=== PATIENT | female | born 1925 | race Caucasian/White ===

== ENCOUNTER 2016-12-19 09:01 | Inpatient (IN) | payer MEDICARE, OTHER ==
[2016-12-19] MEDS ORDERED: Sodium Chloride 0.9% 10 ML Syringe FLUSH PRN (09:29)
[2016-12-19] MEDS ORDERED: Aspirin 81 MG Tab.Chew PO ONE (09:29)
[2016-12-19] MEDS ORDERED: Nitroglycerin 0.4 MG Tab.SL SL PRN (09:29)
[2016-12-19] MEDS ORDERED: LORazepam 2 MG/ML MDV IVPUSH ONE (09:32)
[2016-12-19] MEDS ORDERED: Ondansetron 4 MG/2 ML SDV IVPUSH ONE (09:36)
--- NOTE | 2016-12-19 09:36 | EDM.PDOC ---
ED HPI GENERAL MEDICAL PROBLEM - General Chief Complaint: Chest Pain Stated Complaint: CHEST PAINS Time Seen by Provider: 12/19/16 09:04 Source of Information: Reports: Patient, Family, RN Notes Reviewed History Limitations: Reports: No Limitations - History of Present Illness INITIAL COMMENTS - FREE TEXT/NARRATIVE: 89-year-old female presents emergency department day complaint of chest pressure she describes it as an elephant sitting on her chest she does feel short of breath with nausea no diaphoresis does have a known history of coronary artery disease with past infarct however recent stress test performed on 2016 shows no acute ischemia, she states the chest pressure started last evening it has been waxing and waning but continued she was able to sleep through the night awoke this morning the pressure was still present. Does have a known history of atrial fibrillation currently on xeralto Bilateral Upper Chest Pain Score (Numeric/FACES): 9 - Related Data Allergies Allergy/AdvReac Type Severity Reaction Status Date / Time influenza virus vaccine, Allergy Unknown Cannot Verified 12/19/16 09:15 specific Remember [Influenza Virus Vacc,Specific] Iodinated Contrast- Oral and Allergy Unknown Cannot Verified 12/19/16 09:15 IV Dye Remember [Iodinated Contrast Media - IV Dye] orange juice [[place] Juice] Allergy Unknown Cannot Verified 12/19/16 09:15 Remember amoxicillin [Amoxicillin] AdvReac Nausea and Verified 12/19/16 09:15 Vomiting ciprofloxacin [From Cipro] AdvReac Nausea and Verified 12/19/16 09:15 Vomiting ciprofloxacin HCl AdvReac Nausea and Verified 12/19/16 09:15 [From Cipro] Vomiting Home Meds: Home Meds Ascorbic Acid [Vitamin C] 1,000 mg PO BID 02/19/13 [History] Aspirin [Halfprin] 81 mg PO DAILY 02/19/13 [History] Cetirizine HCl [Zyrtec] 10 mg PO DAILY 02/19/13 [History] Lutein 10 mg PO DAILY 02/19/13 [History] Valsartan [Diovan] 160 mg PO DAILY 02/19/13 [History] Vitamin B Complex [B Complex] 1 each PO DAILY 02/19/13 [History] metFORMIN [Glucophage] 1,000 mg PO BIDM 02/20/13 [History] Codeine/guaiFENesin [Robitussin AC] 1 tsp PO BEDTIME PRN 02/06/14 [History] Levothyroxine [Synthroid] 1 tab PO DAILY 02/06/14 [History] Montelukast [Singulair] 10 mg PO DAILY 02/06/14 [History] Metoprolol Tartrate 25 mg PO BID 04/08/15 [History] Rivaroxaban [Xarelto] 15 mg PO DAILY #30 tablet 04/10/15 [Rx] Fluticasone Propionate [Flonase] 2 sprays NS DAILY 07/26/16 [History] Furosemide [Lasix] 20 mg PO DAILY 07/26/16 [History] Omeprazole 20 mg PO DAILY 07/26/16 [History] amLODIPine [Norvasc] 5 mg PO DAILY 07/26/16 [History] tiZANidine HCl [Tizanidine HCl] 4 mg PO TID 07/26/16 [History] Past Medical History Cardiovascular History: Reports: Afib, Arrhythmia, Hypertension, Syncope Other Cardiovascular History: Cardioverted Respiratory History: Reports: Asthma Gastrointestinal History: Reports: GI Bleed Genitourinary History: Reports: Urinary Incontinence 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: Musculoskeletal History: Reports: Fracture, Other (See Below) Other Musculoskeletal History: broken toes Neurological History: Reports: Vertigo Psychiatric History: Reports: Anxiety Endocrine/Metabolic History: Reports: Diabetes, Type II Dermatologic History: Reports: Melanoma - Past Surgical History HEENT Surgical History: Reports: Tonsillectomy Musculoskeletal Surgical History: Reports: Knee Replacement Social & Family History - Tobacco Use Smoking Status *Q: Unknown Ever Smoked Second Hand Smoke Exposure: No - Alcohol Use Days Per Week of Alcohol Use: 0 - Recreational Drug Use Recreational Drug Use: No ED ROS GENERAL - Review of Systems Review Of Systems: See Below (Yeah she wanted try all good she feel better) Constitutional: Reports: No Symptoms. Denies: Diaphoresis HEENT: Reports: No Symptoms Respiratory: Reports: Shortness of Breath Cardiovascular: Reports: Chest Pain GI/Abdominal: Reports: Nausea. Denies: Vomiting : Reports: No Symptoms Musculoskeletal: Reports: No Symptoms Skin: Reports: No Symptoms ED EXAM, GENERAL - Physical Exam Exam: See Below Exam Limited By: No Limitations General Appearance: Alert, WD/WN, No Apparent Distress Head: Atraumatic, Normocephalic Neck: Normal Inspection, Supple, Non-Tender, Full Range of Motion Respiratory/Chest: No Respiratory Distress, No Accessory Muscle Use, Crackles Cardiovascular: No Murmur, Irregularly Irregular GI/Abdominal: Soft, Non-Tender Course - Vital Signs Last Recorded V/S: Last Vital Signs Temp 97.8 F 12/19/16 11:32 Pulse 80 12/19/16 11:32 Resp 15 12/19/16 11:32 BP 139/102 H 12/19/16 11:32 Pulse Ox 95 12/19/16 11:32 - Orders/Labs/Meds Orders: Active Orders 24 hr Category Date Time Status Cardiac Monitoring [RC] .As Directed Care 12/19/16 09:29 Active EKG Documentation Completion [RC] ASDIRECTED Care 12/19/16 09:30 Active Peripheral IV Care [RC] . DIRECTED Care 12/19/16 09:30 Active Peripheral IV Insertion Adult [OM.PC] Stat Oth 12/19/16 09:29 Ordered Saline Lock Insert [OM.PC] Stat Oth 12/19/16 09:29 Ordered EKG 12 Lead [EK] Stat Ther 12/19/16 09:30 Ordered Labs: Laboratory Tests 12/19/16 12/19/16 12/19/16 Range/Units 09:29 09:29 10:04 WBC 20.2 H (4.5-11.0) K/uL RBC 3.20 L (3.30-5.50) M/uL Hgb 9.5 L (12.0-15.0) g/dL Hct 29.6 L (36.0-48.0) % MCV 93 (80-98) fL MCH 30 (27-31) pg MCHC 32 (32-36) % Plt Count 172 (150-400) K/uL Neut % (Auto) 43 (36-66) % Lymph % (Auto) 8 L (24-44) % [place] % (Auto) 48 H (2-6) % Eos % (Auto) 0 L (2-4) % Baso % (Auto) 0 (0-1) % Sodium 135 L (140-148) mmol/L Potassium 3.9 (3.6-5.2) mmol/L Chloride 98 L (100-108) mmol/L Carbon Dioxide 27 (21-32) mmol/L Anion Gap 13.9 (5.0-14.0) mmol/L BUN 11 (7-18) mg/dL Creatinine 0.9 (0.6-1.0) mg/dL Est Cr Clr Drug Dosing 36.59 mL/min Estimated GFR (MDRD) 59 L (>60) Glucose 269 H (74-106) mg/dL Calcium 8.3 L (8.5-10.1) mg/dL Total Bilirubin 0.9 D (0.2-1.0) mg/dL AST 15 (15-37) U/L ALT 16 (12-78) U/L Alkaline Phosphatase 157 H D (46-116) U/L CK-MB (CK-2) 1.3 (0-3.6) mg/mL Troponin I < 0.017 (0.000-0.056) ng/mL Gho-S-Ujkegdcenoc Pept 1216 H (5-450) pg/mL Total Protein 7.6 (6.4-8.2) g/dL Albumin 3.6 (3.4-5.0) g/dL Globulin 4.0 H (2.3-3.5) g/dL Albumin/Globulin Ratio 0.9 L (1.2-2.2) Meds: Medications Discontinued Medications Generic Name Dose Route Start Last Admin Trade Name Freq PRN Reason Stop Dose Admin Aspirin 324 mg 12/19/16 09:29 12/19/16 09:48 Aspirin PO 12/19/16 09:30 324 mg ONETIME ONE Administration Lorazepam 0.5 mg 12/19/16 09:32 12/19/16 09:49 Ativan IVPUSH 12/19/16 09:33 0.5 mg ONETIME ONE Administration Morphine Sulfate 2 mg 12/19/16 09:29 12/19/16 09:49 Morphine IVPUSH 12/20/16 09:30 2 mg Q10M PRN Administration Chest Pain Nitroglycerin 0.4 mg 12/19/16 09:29 12/19/16 09:48 Nitrostat SL 12/20/16 09:29 0.4 mg Q5M PRN Administration Chest Pain Ondansetron HCl 4 mg 12/19/16 09:36 12/19/16 09:56 Zofran IVPUSH 12/19/16 09:37 4 mg ONETIME ONE Administration Sodium Chloride 10 ml 12/19/16 09:29 12/19/16 09:56 Saline Flush FLUSH 10 ml ASDIRECTED PRN Administration Keep Vein Open Departure - Departure Time of Disposition: 12:07 Disposition: Admitted As Inpatient 68 Condition: Fair Clinical Impression: Atrial fibrillation with controlled ventricular response Dyspnea Qualifiers: Dyspnea type: shortness of breath Qualified Code(s): R06.02 - Shortness of breath; R06.00 - Dyspnea, unspecified; R06.01 - Orthopnea Referrals: Veena Matute PA [Primary Care Provider] - Forms: ED Department Discharge - My Orders Last 24 Hours: My Active Orders 12/19/16 09:29 Cardiac Monitoring [RC] .As Directed Peripheral IV Insertion Adult [OM.PC] Stat Saline Lock Insert [OM.PC] Stat 12/19/16 09:30 EKG Documentation Completion [RC] ASDIRECTED Peripheral IV Care [RC] . DIRECTED EKG 12 Lead [EK] Stat - Assessment/Plan Last 24 Hours: My Active Orders 12/19/16 09:29 Cardiac Monitoring [RC] .As Directed Peripheral IV Insertion Adult [OM.PC] Stat Saline Lock Insert [OM.PC] Stat 12/19/16 09:30 EKG Documentation Completion [RC] ASDIRECTED Peripheral IV Care [RC] . DIRECTED EKG 12 Lead [EK] Stat Plan: Assessment Acuity = acute Site and laterality = dyspnea complicated in a patient with known history of congestive heart failure, coronary artery disease, atrial fibrillation on chronic anticoagulation xarelto Etiology = unclear etiology Manifestations = ongoing dyspnea and hypoxia Location of injury = Home Lab values = WBC elevated at 20.2 consistent leukocytosis hemoglobin low at 9.5 consistent with normochromic anemia hemoglobin low at 135 consistent hyponatremia BNP elevated at 1216 consistent with mild fluid overload type pattern chest x-ray consistent with congestive heart failure type pattern EKG demonstrates atrial fibrillation Plan Called discussed case with hospitalist chain sales consultant he agreed to come and evaluate the patient in the ED for admission Patient was in agreement with the plan all questions were answered, they were instructed to return to the emergency department or call for worsening symptoms. This note was dictated using [employer] voice recognition software please call with any questions.
[2016-12-19] MEDS: Morphine 2 MG/ML Syringe IVPUSH PRN ×2 (09:49→17:22)
--- NOTE | 2016-12-19 10:19 | CR ---
Chest 1V Frontal INDICATION: Chest Pain COMPARISON: 04/15/2011 FINDINGS: Single AP portable view of the chest. Mild cardiomegaly unchanged. There is mild vascula r congestion. No focal consolidations or pleural effusions. IMPRESSION: Mild CHF.
--- NOTE | 2016-12-19 11:26 | CT ---
Chest wo Cont INDICATION: hypoxic TECHNIQUE: CT images of the chest without IV contrast. Coronal reformatted images obtained. DLP: 246 mGycm COMPARISON: None FINDINGS:No mediastinal mass. Thoracic aorta normal caliber. Coronary artery calcifications. Minimal pericardial effusion or thickening. Minimal atelectatic changes in both lower lobes. No focal conso lidations. No signs of pulmonary edema. No pleural effusions. Calcified granulomas in the liver and spleen. IMPRESSION: Nothing acute. Incidental findings, as above.
--- NOTE | 2016-12-19 12:41 | PCM.HP ---
H&P History of Present Illness - General Date of Service: 12/19/16 Admit Problem/Dx: Admission Diagnosis/Problem Admission Diagnosis/Problem CHF, Congestive heart failure Source of Information: Patient, Family, Provider History Limitations: Reports: No Limitations - History of Present Illness Initial Comments - Free Text/Narative: Shama presented to the emergency room with chest pressure. This started last evening and has progressed and not gotten better since that time. She reports moderate pressure like pain in the center of her chest. This radiates to her shoulder into her neck on the left side. Pain seems to wax and wane with no obvious trigger. She did not take anything at home. Nitroglycerin and morphine did not provide any relief here in the emergency room. Lorazepam may have helped a little. The pain is associated with some shortness of breath. She does report a history of progressive shortness of breath over the past few days and to a mild extent over the past few weeks. She is short of breath with minimal activity but comfortable at rest. She does not report orthopnea. She noticed a very low-grade temperature elevation yesterday but has not felt any fevers. She has an occasional relatively infrequent cough. She had mild diarrhea last week that has resolved. Currently does not have abdominal pain or nausea. No change in bladder habits. No lower extremity edema. Workup in the emergency room was suggestive of mild congestive heart failure which is thought to be diastolic. There is no evidence for acute coronary syndrome at this time. She will be admitted for further management. Bilateral Upper Chest Pain Score (Numeric/FACES): 9 - Related Data Allergies/Adverse Reactions: Allergies Allergy/AdvReac Type Severity Reaction Status Date / Time influenza virus vaccine, Allergy Unknown Cannot Verified 12/19/16 09:15 specific Remember [Influenza Virus Vacc,Specific] Iodinated Contrast- Oral and Allergy Unknown Cannot Verified 12/19/16 09:15 IV Dye Remember [Iodinated Contrast Media - IV Dye] orange juice [[place] Juice] Allergy Unknown Cannot Verified 12/19/16 09:15 Remember amoxicillin [Amoxicillin] AdvReac Nausea and Verified 12/19/16 09:15 Vomiting ciprofloxacin [From Cipro] AdvReac Nausea and Verified 12/19/16 09:15 Vomiting ciprofloxacin HCl AdvReac Nausea and Verified 12/19/16 09:15 [From Cipro] Vomiting Home Medications: Home Meds Ascorbic Acid [Vitamin C] 1,000 mg PO DAILY 10/15/13 [History] Aspirin [Halfprin] 81 mg PO DAILY 02/19/13 [History] Lutein 10 mg PO DAILY 02/19/13 [History] Valsartan [Diovan] 160 mg PO BEDTIME 02/19/13 [History] Vitamin B Complex [B Complex] 1 each PO BID 02/19/13 [History] metFORMIN [Glucophage] 1,000 mg PO BID 02/20/13 [History] Codeine/guaiFENesin [Robitussin AC] 1 tsp PO BEDTIME PRN 02/06/14 [History] Levothyroxine [Synthroid] 1 mcg PO DAILY 02/06/14 [History] Montelukast [Singulair] 10 mg PO DAILY 02/06/14 [History] Metoprolol Tartrate 25 mg PO BID 04/08/15 [History] Furosemide [Lasix] 20 mg PO DAILY 07/26/16 [History] Omeprazole 20 mg PO ASDIRECTED PRN 07/26/16 [History] Loratadine 10 mg PO DAILY 12/19/16 [History] Rivaroxaban [Xarelto] 15 mg PO BEDTIME 12/19/16 [History] Past Medical History Cardiovascular History: Reports: Afib, Arrhythmia, Hypertension, Syncope Other Cardiovascular History: Cardioverted Respiratory History: Reports: Asthma Gastrointestinal History: Reports: GI Bleed Genitourinary History: Reports: Urinary Incontinence 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: Reports: Fracture, Other (See Below) Other Musculoskeletal History: broken toes Neurological History: Reports: Vertigo Psychiatric History: Reports: Anxiety Endocrine/Metabolic History: Reports: Diabetes, Type II Dermatologic History: Reports: Melanoma - Past Surgical History HEENT Surgical History: Reports: Tonsillectomy Musculoskeletal Surgical History: Reports: Knee Replacement Social & Family History - Family History Oncologic: Reports: Brain (daughter with brain tumor) - Tobacco Use Smoking Status *Q: Unknown Ever Smoked Second Hand Smoke Exposure: No - Alcohol Use Days Per Week of Alcohol Use: 0 - Recreational Drug Use Recreational Drug Use: No H&P Review of Systems - Review of Systems: Review Of Systems: See Below Free Text/Narrative: A complete 12 point review of systems was obtained. Pertinent positives and negatives are noted in the history of present illness. All other systems were reviewed and were negative except as noted. Exam - Exam Exam: See Below - Vital Signs Vital Signs: Last Vital Signs Temp 36.6 C 12/19/16 11:32 Pulse 80 12/19/16 11:32 Resp 15 12/19/16 11:32 BP 139/102 H 12/19/16 11:32 Pulse Ox 95 12/19/16 11:32 Weight: 81.647 kg - Exam Quality Assessment: Supplemental Oxygen General: Alert, Oriented, Cooperative. No: Mild Distress, Lethargic HEENT: Conjunctiva Clear, Mucosa Moist & [place]. No: Scleral Icterus Neck: Supple, Trachea Midline. No: Lymphadenopathy Lungs: Normal Respiratory Effort, Rales (mild at both bases) Cardiovascular: Regular Rate, Irregular Rhythm, Systolic Murmur (soft LOR[place]INE best at LLSB) GI/Abdominal Exam: Normal Bowel Sounds, Soft, Non-Tender, No Distention Back Exam: Normal Inspection, Full Range of Motion Extremities: Pedal Edema (mild bilateral ankle edema). No: Joint Swelling, Increased Warmth Peripheral Pulses: 2+: Dorsalis Pedis (L), Dorsalis Pedis (R) Skin: Warm, Dry. No: Rash Neuro Extensive - Mental Status: Alert, Oriented x3, Nl Response to Commands Neuro Extensive - Motor, Sensory, Reflexes: CN II-XII Intact. No: Dysarthria, Abnormal Motor, Tremor Psychiatric: Alert, Normal Affect - Patient Data Lab Results Last 24 hrs: Laboratory Results - last 24 hr 12/19/16 12/19/16 12/19/16 Range/Units 09:29 09:29 10:04 WBC 20.2 H (4.5-11.0) K/uL RBC 3.20 L (3.30-5.50) M/uL Hgb 9.5 L (12.0-15.0) g/dL Hct 29.6 L (36.0-48.0) % MCV 93 (80-98) fL MCH 30 (27-31) pg MCHC 32 (32-36) % Plt Count 172 (150-400) K/uL Neut % (Auto) 43 (36-66) % Lymph % (Auto) 8 L (24-44) % [place] % (Auto) 48 H (2-6) % Eos % (Auto) 0 L (2-4) % Baso % (Auto) 0 (0-1) % Sodium 135 L (140-148) mmol/L Potassium 3.9 (3.6-5.2) mmol/L Chloride 98 L (100-108) mmol/L Carbon Dioxide 27 (21-32) mmol/L Anion Gap 13.9 (5.0-14.0) mmol/L BUN 11 (7-18) mg/dL Creatinine 0.9 (0.6-1.0) mg/dL Est Cr Clr Drug Dosing 36.59 mL/min Estimated GFR (MDRD) 59 L (>60) Glucose 269 H (74-106) mg/dL Calcium 8.3 L (8.5-10.1) mg/dL Total Bilirubin 0.9 D (0.2-1.0) mg/dL AST 15 (15-37) U/L ALT 16 (12-78) U/L Alkaline Phosphatase 157 H D (46-116) U/L CK-MB (CK-2) 1.3 (0-3.6) mg/mL Troponin I < 0.017 (0.000-0.056) ng/mL L[facility]-L-Bjovnicfccg Pept 1216 H (5-450) pg/mL Total Protein 7.6 (6.4-8.2) g/dL Albumin 3.6 (3.4-5.0) g/dL Globulin 4.0 H (2.3-3.5) g/dL Albumin/Globulin Ratio 0.9 L (1.2-2.2) Result Diagrams: 12/19/16 09:29 12/19/16 09:29 Imaging Impressions Last 24 hrs: CXR - images personally reviewed - mild cardiomegally and mild pulm vasc congestion. no infiltrate, mass or effusion CT chest - no obvious abnromality, no mass or infiltrate EKG INTERPRETATION EKG Date: 12/19/16 Rhythm: A-Fib Rate (Beats/Min): 107 [place]: Normal P-Wave: Variable QRS: Normal ST-T: Normal QT: Normal *Q Meaningful Use (ADM) - VTE *Q VTE Criteria *Q: - VTE Risk Assess *Q Each Risk Factor Represents 1 Point: Swollen Legs, Current, Obesity (BMI greater than 30), Congestive Heart Failure, Less than 1 Month Total Score 1 Point Risk Factors: 3 Each Risk Factor Represents 2 Points: None Total Score 2 Point Risk Factors: 0 Each Risk Factor Represents 3 Points: Age 75 Years or Greater Total Score 3 Point Risk Factors: 3 Each Risk Factor Represents 5 Points: None Total Score 5 Point Risk Factors: 0 Venous Thromboembolism Risk Factor Score *Q: 6 - Stroke *Q Stroke Criteria *Q: - AMI *Q AMI Criteria *Q: - Problem List (1) Acute diastolic CHF (congestive heart failure), NYHA class 3 SNOMED Code(s): 689764991, 02400563, 017242601, 492695967 ICD Code: I50.31 - ACUTE DIASTOLIC (CONGESTIVE) HEART FAILURE Status: Acute Current Visit: Yes (2) Diabetes mellitus type 2 SNOMED Code(s): 55272676 ICD Code: E11.9 - TYPE 2 DIABETES MELLITUS WITHOUT COMPLICATIONS Status: Chronic Priority: Medium Current Visit: No (3) Atrial fibrillation with controlled ventricular response SNOMED Code(s): 99877561, 160680196 ICD Code: I48.91 - UNSPECIFIED ATRIAL FIBRILLATION Status: Chronic Priority: Medium Current Visit: Yes Problem List Initiated/Reviewed/Updated: Yes Orders Last 24hrs: Active Orders 24 hr Category Date Time Status Patient Status Manage Transfer [TRANSFER] Routine ADT 12/19/16 12:32 Ordered Cardiac Monitoring [RC] .As Directed Care 12/19/16 09:29 Active EKG Documentation Completion [RC] ASDIRECTED Care 12/19/16 09:30 Active Peripheral IV Care [RC] . DIRECTED Care 12/19/16 09:30 Active Furosemide [Lasix] Med 12/19/16 12:31 Once 40 mg IVPUSH NOW ONE Peripheral IV Insertion Adult [OM.PC] Stat Oth 12/19/16 09:29 Ordered Saline Lock Insert [OM.PC] Stat Oth 12/19/16 09:29 Ordered Resuscitation Status Routine Resus Stat 12/19/16 12:34 Ordered EKG 12 Lead [EK] Stat Ther 12/19/16 09:30 Ordered Medication Orders Furosemide (Lasix) 40 mg IVPUSH NOW ONE Stop: 12/19/16 12:32 Assessment/Plan Comment:: Assessment and Plan - Heart failure with preserved ejection fraction - diastolic type heart failure with slow progression and more acute change in the past 3 days. no obvious cause for exacerbation at this time. Could be related to a slow buildup of fluid caused by insufficient diuretic dosing. No evidence for infection. No recent symptoms to suggest ischemia. Recent thyroid testing normal. -Furosemide 40 mg 1 now -Cardiac monitoring -Continue BB, ARB -Reassess volume status this afternoon -Consider repeat echo Monday -Recheck electrolytes and renal function in the morning Type 2 diabetes mellitus - controlled by history. -Continue metformin -Twice daily Accu-Cheks -Consider sliding scale insulin if needed Chronic atrial fibrillation - rate controlled at this time.she is chronically anticoagulated -Continue beta andre -Continue rivaroxaban Maintenance issues - - DVT prophylaxis - rivaroxaban - GI prophylaxis - PPI - Nutrition - diabetic - Houser catheter - not indicated CODE STATUS - DNR/DNI Admission justification - This patient will be admitted for inpatient services and is medically appropriate meeting medical necessity for inpatient admission as outlined in my documentation. I reasonably expect the patient will require inpatient services that span a period time over 2 midnights. I reasonably expect this patient to be discharged or transferred within 96 hours [facility]. Disposition - anticipate discharge to home after the hospital stay Primary care physician - Debbi Jimenez M.D.
[2016-12-19] MEDS ORDERED: Furosemide 40 MG/4 ML VIAL IVPUSH ONE (13:00)
[2016-12-19] MEDS ORDERED: Polyethylene Glycol 3350 Powder 17 GM Packet PO PRN (13:52)
[2016-12-19] MEDS ORDERED: Diphtheria,Pertussis(Acell),Tetanus Vaccine 0.5 ML SDV IM ONE (16:00)
[2016-12-19] MEDS ORDERED: Pneumococcal Polyvalent-23 Vaccine 0.5 ML SDV IM ONE (16:00)
[2016-12-19] MEDS: metFORMIN 500 MG Tab PO SCH (17:16)
[2016-12-19] MEDS: Acetaminophen 325 MG Tab PO PRN (17:36)
[2016-12-19] MEDS: Rivaroxaban 15 MG Tab PO SCH (22:31)
[2016-12-19] MEDS: Metoprolol Tartrate 25 MG Tab PO SCH (22:32)
[2016-12-20] MEDS: Morphine 2 MG/ML Syringe IVPUSH PRN ×2 (04:11→07:20)
[2016-12-20] MEDS: Ondansetron 4 MG Tab.DIS PO PRN (07:07)
[2016-12-20] MEDS: Vitamin B Complex Tab PO SCH (08:56)
[2016-12-20] MEDS: Montelukast 10 MG Tab PO SCH (08:57)
[2016-12-20] MEDS: Pantoprazole 40 MG Tab.CR PO SCH (08:57)
[2016-12-20] MEDS: Levothyroxine 100 MCG Tab PO SCH (08:57)
[2016-12-20] MEDS: metFORMIN 500 MG Tab PO SCH ×2 (08:58→17:13)
[2016-12-20] MEDS: Metoprolol Tartrate 25 MG Tab PO SCH ×2 (09:13→20:50)
[2016-12-20] MEDS: Loratadine 10 MG Tab PO SCH (09:14)
[2016-12-20] MEDS: Aspirin 81 MG Tab.EC PO SCH (09:14)
[2016-12-20] MEDS: LUTEIN 10 MG PO SCH (09:15)
--- NOTE | 2016-12-20 10:15 | PCM.PN ---
- General Info Date of Service: 12/20/16 Functional Status: Reports: Pain Controlled - Review of Systems General: Reports: Weakness Pulmonary: Reports: Shortness of Breath Cardiovascular: Reports: Chest Pain Systems Review Comment:: Overnight there was some difficulty with hypotension as well as dyspnea on exertion and diaphoresis with exertion. Pressures have remained on the low normal side. This morning she felt a little better but then had another episode later in the day with blood pressures in the 80s. She complains of anterior chest pain as well as pain in between her shoulder blades. This is worse with any movement as well as pushing on her chest. It hurts to take a deep breath. - Patient Data Vitals - Most Recent: Last Vital Signs Temp 36.5 C 12/20/16 07:15 Pulse 114 H 12/20/16 09:13 Resp 18 12/20/16 07:47 BP 106/66 12/20/16 09:13 Pulse Ox 91 L 12/20/16 07:47 Weight - Most Recent: 84.397 kg I&O - Last 24 Hours: Intake & Output 12/19/16 12/20/16 12/20/16 22:59 06:59 14:59 Intake Total 240 500 840 Output Total 300 150 150 Balance -60 350 690 Lab Results Last 24 Hours: Laboratory Results - last 24 hr 12/19/16 12/20/16 12/20/16 Range/Units 22:36 08:43 08:43 WBC 29.2 H (4.5-11.0) K/uL RBC 3.03 L (3.30-5.50) M/uL Hgb 9.1 L (12.0-15.0) g/dL Hct 28.7 L (36.0-48.0) % MCV 95 (80-98) fL MCH 30 (27-31) pg MCHC 32 (32-36) % Plt Count 142 L (150-400) K/uL Add Manual Diff Yes Neutrophils % (Manual) 75 H (36-66) % Lymphocytes % (Manual) 14 L (24-44) % Monocytes % (Manual) 11 H (2-6) % Polychromasia Sodium 131 L (140-148) mmol/L Potassium 4.5 (3.6-5.2) mmol/L Chloride 95 L (100-108) mmol/L Carbon Dioxide 29 (21-32) mmol/L Anion Gap 11.5 (5.0-14.0) mmol/L BUN 20 H D (7-18) mg/dL Creatinine 1.1 H (0.6-1.0) mg/dL Est Cr Clr Drug Dosing 29.94 mL/min Estimated GFR (MDRD) 47 L (>60) Glucose 310 H (74-106) mg/dL Calcium 8.1 L (8.5-10.1) mg/dL Troponin I < 0.017 (0.000-0.056) ng/mL Urine Color [place] Urine Appearance Cloudy Urine pH 5.0 (4.5-8.0) Ur Specific [place] 1.015 (1.008-1.030) Urine Protein Negative (NEGATIVE) mg/dL Urine Glucose (UA) 50 H (NEGATIVE) mg/dL Urine Ketones Negative (NEGATIVE) mg/dL Urine Occult Blood Negative (NEGATIVE) Urine Nitrite Negative (NEGATIVE) Urine Bilirubin Small (NEGATIVE) Urine Urobilinogen 1 (NORMAL) mg/dL Ur Leukocyte Esterase Moderate (NEGATIVE) Urine RBC 0-5 (0-5) Urine WBC 10-20 H (0-5) Ur Epithelial Cells Moderate Amorphous Sediment Few Urine Bacteria Few Urine Mucus Few Urine Other See note Med Orders - Current: Current Medications Acetaminophen (Tylenol) 650 mg PO Q4H PRN PRN Reason: Pain (Mild 1-3)/fever Last Admin: 12/19/16 17:36 Dose: 650 mg Aspirin (Halfprin) 81 mg PO DAILY [facility] Last Admin: 12/20/16 09:14 Dose: 81 mg Ibuprofen (Motrin) 400 mg PO TID [facility] Insulin Aspart (Novolog) 0 unit SUBCUT QIDACANDBED [facility] PRN Reason: Protocol Levothyroxine Sodium (Synthroid) 100 mcg PO ACBREAKFAST [facility] Last Admin: 12/20/16 08:57 Dose: 100 mcg Loratadine (Claritin) 10 mg PO DAILY [facility] Last Admin: 12/20/16 09:14 Dose: 10 mg Metformin HCl (Glucophage) 1,000 mg PO BIDM [facility] Last Admin: 12/20/16 08:58 Dose: 1,000 mg Metoprolol Tartrate (Lopressor) 25 mg PO BID [facility] Last Admin: 12/20/16 09:13 Dose: 25 mg Montelukast Sodium (Singulair) 10 mg PO DAILY [facility] Last Admin: 12/20/16 08:57 Dose: 10 mg Lutein 10 Mg (Ptom) 0 mg PO DAILY [facility] Last Admin: 12/20/16 09:15 Dose: Not Given Ondansetron HCl (Zofran Odt) 4 mg PO Q6H PRN PRN Reason: Nausea able to take PO Last Admin: 12/20/16 07:07 Dose: 4 mg Pantoprazole Sodium (Protonix) 40 mg PO ACBREAKFAST [facility] Last Admin: 12/20/16 08:57 Dose: 40 mg Polyethylene Glycol (Miralax) 17 gm PO DAILY PRN PRN Reason: Constipation Rivaroxaban (Xarelto) 15 mg PO BEDTIME [facility] Last Admin: 12/19/16 22:31 Dose: 15 mg Sodium Chloride (Saline Flush) 10 ml FLUSH ASDIRECTED PRN PRN Reason: Keep Vein Open Last Admin: 12/19/16 09:56 Dose: 10 ml Valsartan (Diovan) 80 mg PO BEDTIME [facility] Vitamin B Complex (Vitamin B Complex) 1 each PO DAILY [facility] Last Admin: 12/20/16 08:56 Dose: 1 each Discontinued Medications Aspirin (Aspirin) 324 mg PO ONETIME ONE Stop: 12/19/16 09:30 Last Admin: 12/19/16 09:48 Dose: 324 mg Diphtheria/Tetanus/Acell Pertussis (Adacel) 0.5 ml IM .ONCE ONE Stop: 12/19/16 16:01 Furosemide (Lasix) 40 mg IVPUSH NOW ONE Stop: 12/19/16 13:01 Last Admin: 12/19/16 13:27 Dose: 40 mg Lorazepam (Ativan) 0.5 mg IVPUSH ONETIME ONE Stop: 12/19/16 09:33 Last Admin: 12/19/16 09:49 Dose: 0.5 mg Morphine Sulfate (Morphine) 2 mg IVPUSH Q10M PRN PRN Reason: Chest Pain Stop: 12/20/16 09:30 Last Admin: 12/20/16 07:20 Dose: 2 mg Nitroglycerin (Nitrostat) 0.4 mg SL Q5M PRN PRN Reason: Chest Pain Stop: 12/20/16 09:29 Last Admin: 12/19/16 09:48 Dose: 0.4 mg Ondansetron HCl (Zofran) 4 mg IVPUSH ONETIME ONE Stop: 12/19/16 09:37 Last Admin: 12/19/16 09:56 Dose: 4 mg Pneumococcal Polyvalent Vaccine (Pneumovax 23) 0.5 ml IM .ONCE ONE Stop: 12/19/16 16:01 Valsartan (Diovan) 160 mg PO BEDTIME SAY Last Admin: 12/19/16 22:32 Dose: Not Given - Exam Quality Assessment: Supplemental Oxygen General: Alert, Oriented, Cooperative, No Acute Distress HEENT: Pupils Equal Neck: Supple Lungs: Normal Respiratory Effort, Rales (few at both bases) Cardiovascular: Regular Rate, Irregular Rhythm, Murmurs GI/Abdominal Exam: Soft, No Distention Extremities: No Pedal Edema. No: Increased Warmth Skin: Warm, Dry Psy/Mental Status: Alert, Normal Affect - Problem List & Annotations (1) Acute diastolic CHF (congestive heart failure), NYHA class 3 SNOMED Code(s): 503563822, 07324261, 039847862, 296569938 Code(s): I50.31 - ACUTE DIASTOLIC (CONGESTIVE) HEART FAILURE Status: Acute Current Visit: Yes (2) Diabetes mellitus type 2 SNOMED Code(s): 66500274 Code(s): E11.9 - TYPE 2 DIABETES MELLITUS WITHOUT COMPLICATIONS Status: Chronic Priority: Medium Current Visit: No (3) Atrial fibrillation with controlled ventricular response SNOMED Code(s): 88625982, 234483967 Code(s): I48.91 - UNSPECIFIED ATRIAL FIBRILLATION Status: Chronic Priority: Medium Current Visit: Yes - Problem List Review Problem List Initiated/Reviewed/Updated: Yes - My Orders Last 24 Hours: My Active Orders 12/19/16 12:34 Resuscitation Status Routine 12/19/16 13:52 Patient Status [ADT] Routine Cardiac Monitoring [RC] CONTINUOUS Communication Order [RC] PRN Communication Order [RC] PRN Diabetes Education [RC] Click to Edit Intake and Output [RC] QSHIFT Notify Provider Vital Signs [RC] ASDIRECTED Notify Provider [RC] PRN Oxygen Therapy [RC] PRN Up With Assistance [RC] ASDIRECTED VTE/DVT Education [RC] Per Unit Routine Vital Signs [RC] Q4H Acetaminophen [Tylenol] 650 mg PO Q4H PRN Ondansetron [Zofran ODT] 4 mg PO Q6H PRN Polyethylene Glycol 3350 [MiraLAX] 17 gm PO DAILY PRN 12/19/16 Dinner Consistent Carbohydrate Diet [DIET] 12/20/16 07:30 Pantoprazole [ProTONIX] 40 mg PO ACBREAKFAST 12/20/16 08:43 PATHOLOGIST'S DIFFERENTIAL [REF] Routine 12/20/16 09:29 Communication Order [RC] PRN Communication Order [RC] PRN 12/20/16 10:15 Ibuprofen [Motrin] 400 mg PO TID 12/20/16 11:00 Insulin Aspart [NovoLOG] See Protocol SUBCUT QIDACANDBED 12/20/16 11:30 GLUCOSE POC LAB TO COLLECT [POC] QIDACANDBED 12/20/16 16:30 GLUCOSE POC LAB TO COLLECT [POC] QIDACANDBED 12/20/16 21:00 GLUCOSE POC LAB TO COLLECT [POC] QIDACANDBED Valsartan [Diovan] 80 mg PO BEDTIME 12/21/16 05:00 BASIC METABOLIC PANEL,BMP [CHEM] Timed CBC W/O DIFF,HEMOGRAM [HEME] Timed (1) 12/21/16 07:30 GLUCOSE POC LAB TO COLLECT [POC] QIDACANDBED 12/21/16 11:30 GLUCOSE POC LAB TO COLLECT [POC] QIDACANDBED 12/21/16 16:30 GLUCOSE POC LAB TO COLLECT [POC] QIDACANDBED 12/21/16 21:00 GLUCOSE POC LAB TO COLLECT [POC] QIDACANDBED 12/22/16 07:30 GLUCOSE POC LAB TO COLLECT [POC] QIDACANDBED 12/22/16 11:30 GLUCOSE POC LAB TO COLLECT [POC] QIDACANDBED 12/22/16 16:30 GLUCOSE POC LAB TO COLLECT [POC] QIDACANDBED 12/22/16 21:00 GLUCOSE POC LAB TO COLLECT [POC] QIDACANDBED 12/23/16 07:30 GLUCOSE POC LAB TO COLLECT [POC] QIDACANDBED 12/23/16 11:30 GLUCOSE POC LAB TO COLLECT [POC] QIDACANDBED 12/23/16 16:30 GLUCOSE POC LAB TO COLLECT [POC] QIDACANDBED 12/23/16 21:00 GLUCOSE POC LAB TO COLLECT [POC] QIDACANDBED 12/24/16 07:30 GLUCOSE POC LAB TO COLLECT [POC] QIDACANDBED 12/24/16 11:30 GLUCOSE POC LAB TO COLLECT [POC] QIDACANDBED 12/24/16 16:30 GLUCOSE POC LAB TO COLLECT [POC] QIDACANDBED 12/24/16 21:00 GLUCOSE POC LAB TO COLLECT [POC] QIDACANDBED 12/25/16 07:30 GLUCOSE POC LAB TO COLLECT [POC] QIDACANDBED 12/25/16 11:30 GLUCOSE POC LAB TO COLLECT [POC] QIDACANDBED 12/25/16 16:30 GLUCOSE POC LAB TO COLLECT [POC] QIDACANDBED - Plan Plan:: Assessment and Plan - Heart failure with preserved ejection fraction - became hypotensive following diuresis. Still appears to be a little volume up as far as her total body is concerned but today appears intravascularly dry. -Hold on further diuresis -Cardiac monitoring -Continue BB -Discontinue ARB -Reassess volume status this afternoon -echo Monday -Recheck electrolytes and renal function in the morning Anterior chest pain - seems more muscular and I suspect that mid back muscular pain is related. Possibly an overuse type issue. She also has a pleuritic component. No evidence for acute coronary syndrome. -Ibuprofen Leukocytosis - no evidence for infection or inflammation that I can find. I did look at her peripheral smear today and there appear to be some immature cells. Peripheral smear has been sent for pathologist review. -Repeat white blood cell count in the morning -Follow-up peripheral smear Type 2 diabetes mellitus - controlled by history but sugars have been moderately elevated during the hospital stay. -Continue metformin -Sliding-scale insulin Chronic atrial fibrillation - rate controlled at this time.she is chronically anticoagulated -Continue beta andre -Continue rivaroxaban Maintenance issues - - DVT prophylaxis - rivaroxaban - GI prophylaxis - PPI - Nutrition - diabetic Disposition - anticipate discharge to home after the hospital stay Primary care physician - Debbi Jimenez M.D.
[2016-12-20] MEDS: Insulin Aspart 100 Units/ML 3 ML Pen SUBCUT SCH ×3 (11:38→20:50)
[2016-12-20] MEDS: Ibuprofen 400 MG Tab PO SCH ×2 (12:22→17:12)
[2016-12-20] MEDS ORDERED: Sodium Chloride 0.9% 500 ML IV ONE (13:43)
[2016-12-20] MEDS: Rivaroxaban 15 MG Tab PO SCH (20:50)
[2016-12-20] MEDS ORDERED: Ondansetron 4 MG/2 ML SDV IVPUSH PRN (23:40)
[2016-12-20] MEDS ORDERED: Bisacodyl 10 MG Supp RECTAL ONE (23:40)
[2016-12-21] MEDS: Pantoprazole 40 MG Tab.CR PO SCH (08:20)
[2016-12-21] MEDS: Levothyroxine 100 MCG Tab PO SCH (08:20)
[2016-12-21] MEDS: Insulin Aspart 100 Units/ML 3 ML Pen SUBCUT SCH ×5 (08:21→22:03)
[2016-12-21] MEDS: Montelukast 10 MG Tab PO SCH (09:44)
[2016-12-21] MEDS: Vitamin B Complex Tab PO SCH (09:44)
[2016-12-21] MEDS: Aspirin 81 MG Tab.EC PO SCH (09:44)
[2016-12-21] MEDS: Metoprolol Tartrate 25 MG Tab PO SCH ×2 (09:45→22:04)
[2016-12-21] MEDS: LUTEIN 10 MG PO SCH (09:45)
[2016-12-21] MEDS: Loratadine 10 MG Tab PO SCH (09:45)
--- NOTE | 2016-12-21 10:28 | PCM.PN ---
- General Info Date of Service: 12/21/16 Functional Status: Reports: Pain Controlled - Review of Systems Pulmonary: Reports: Shortness of Breath Gastrointestinal: Reports: Nausea, Vomiting Systems Review Comment:: Shama had some difficulties with dyspnea on exertion as well as nausea overnight. Nausea seems to have resolved this morning but she still feels short of breath. She continues to require 3 L of supplemental oxygen. Still having some pain in her chest as well as in the middle of her back. Blood pressures have been a little better but are dipping again as the morning progresses. Mildly tachycardic this morning. - Patient Data Vitals - Most Recent: Last Vital Signs Temp 36.5 C 12/21/16 07:21 Pulse 114 H 12/21/16 09:45 Resp 16 12/21/16 07:21 BP 100/68 12/21/16 09:45 Pulse Ox 92 L 12/21/16 08:17 Weight - Most Recent: 84.397 kg I&O - Last 24 Hours: Intake & Output 12/20/16 12/21/16 12/21/16 22:59 06:59 14:59 Intake Total 790 Output Total 150 50 Balance -150 740 Lab Results Last 24 Hours: Laboratory Results - last 24 hr 12/21/16 12/21/16 Range/Units 05:39 05:39 WBC 35.4 H* (4.5-11.0) K/uL RBC 3.00 L (3.30-5.50) M/uL Hgb 9.1 L (12.0-15.0) g/dL Hct 28.1 L (36.0-48.0) % MCV 94 (80-98) fL MCH 30 (27-31) pg MCHC 32 (32-36) % Plt Count 132 L (150-400) K/uL Sodium 127 L (140-148) mmol/L Potassium 4.6 (3.6-5.2) mmol/L Chloride 92 L (100-108) mmol/L Carbon Dioxide 25 (21-32) mmol/L Anion Gap 14.6 H (5.0-14.0) mmol/L BUN 34 H D (7-18) mg/dL Creatinine 2.1 H D (0.6-1.0) mg/dL Est Cr Clr Drug Dosing 15.68 mL/min Estimated GFR (MDRD) 22 L (>60) Glucose 250 H (74-106) mg/dL Calcium 8.3 L (8.5-10.1) mg/dL Med Orders - Current: Current Medications Acetaminophen (Tylenol) 650 mg PO Q4H PRN PRN Reason: Pain (Mild 1-3)/fever Last Admin: 12/19/16 17:36 Dose: 650 mg Aspirin (Halfprin) 81 mg PO DAILY [facility] Last Admin: 12/21/16 09:44 Dose: 81 mg Insulin Aspart (Novolog) 0 unit SUBCUT QIDACANDBED [facility] PRN Reason: Protocol Last Admin: 12/21/16 08:21 Dose: 6 units Levothyroxine Sodium (Synthroid) 100 mcg PO ACBREAKFAST [facility] Last Admin: 12/21/16 08:20 Dose: 100 mcg Loratadine (Claritin) 10 mg PO DAILY [facility] Last Admin: 12/21/16 09:45 Dose: 10 mg Metoprolol Tartrate (Lopressor) 25 mg PO BID [facility] Last Admin: 12/21/16 09:45 Dose: 25 mg Montelukast Sodium (Singulair) 10 mg PO DAILY [facility] Last Admin: 12/21/16 09:44 Dose: 10 mg Lutein 10 Mg (Ptom) 0 mg PO DAILY [facility] Last Admin: 12/21/16 09:45 Dose: Not Given Ondansetron HCl (Zofran Odt) 4 mg PO Q6H PRN PRN Reason: Nausea able to take PO Last Admin: 12/20/16 07:07 Dose: 4 mg Ondansetron HCl (Zofran) 4 mg IVPUSH Q6H PRN PRN Reason: Nausea/Vomiting Last Admin: 12/20/16 23:56 Dose: 4 mg Pantoprazole Sodium (Protonix) 40 mg PO ACBREAKFAST [facility] Last Admin: 12/21/16 08:20 Dose: 40 mg Polyethylene Glycol (Miralax) 17 gm PO DAILY PRN PRN Reason: Constipation Rivaroxaban (Xarelto) 15 mg PO BEDTIME [facility] Last Admin: 12/20/16 20:50 Dose: 15 mg Sodium Chloride (Saline Flush) 10 ml FLUSH ASDIRECTED PRN PRN Reason: Keep Vein Open Last Admin: 12/19/16 09:56 Dose: 10 ml Vitamin B Complex (Vitamin B Complex) 1 each PO DAILY [facility] Last Admin: 12/21/16 09:44 Dose: 1 each Discontinued Medications Aspirin (Aspirin) 324 mg PO ONETIME ONE Stop: 12/19/16 09:30 Last Admin: 12/19/16 09:48 Dose: 324 mg Bisacodyl (Dulcolax) 10 mg RECTAL ONETIME ONE Stop: 12/20/16 23:41 Last Admin: 12/21/16 05:20 Dose: 10 mg Diphtheria/Tetanus/Acell Pertussis (Adacel) 0.5 ml IM .ONCE ONE Stop: 12/19/16 16:01 Furosemide (Lasix) 40 mg IVPUSH NOW ONE Stop: 12/19/16 13:01 Last Admin: 12/19/16 13:27 Dose: 40 mg Sodium Chloride (Normal Saline) 500 mls @ 999 mls/hr IV .BOLUS ONE Stop: 12/20/16 14:13 Last Admin: 12/20/16 14:09 Dose: 999 mls/hr Ibuprofen (Motrin) 400 mg PO TIDMEALS [facility] Last Admin: 12/20/16 17:12 Dose: 400 mg Lorazepam (Ativan) 0.5 mg IVPUSH ONETIME ONE Stop: 12/19/16 09:33 Last Admin: 12/19/16 09:49 Dose: 0.5 mg Metformin HCl (Glucophage) 1,000 mg PO BIDM [facility] Last Admin: 12/20/16 17:13 Dose: 1,000 mg Morphine Sulfate (Morphine) 2 mg IVPUSH Q10M PRN PRN Reason: Chest Pain Stop: 12/20/16 09:30 Last Admin: 12/20/16 07:20 Dose: 2 mg Nitroglycerin (Nitrostat) 0.4 mg SL Q5M PRN PRN Reason: Chest Pain Stop: 12/20/16 09:29 Last Admin: 12/19/16 09:48 Dose: 0.4 mg Ondansetron HCl (Zofran) 4 mg IVPUSH ONETIME ONE Stop: 12/19/16 09:37 Last Admin: 12/19/16 09:56 Dose: 4 mg Pneumococcal Polyvalent Vaccine (Pneumovax 23) 0.5 ml IM .ONCE ONE Stop: 12/19/16 16:01 Valsartan (Diovan) 160 mg PO BEDTIME [facility] Last Admin: 12/19/16 22:32 Dose: Not Given Valsartan (Diovan) 80 mg PO BEDTIME SAY - Exam Quality Assessment: Supplemental Oxygen General: Alert, Oriented, Cooperative, Mild Distress HEENT: Pupils Equal Neck: Supple Lungs: Rales (both bases). No: Normal Respiratory Effort (increased work of breathing ) Cardiovascular: Regular Rate, Irregular Rhythm, Murmurs GI/Abdominal Exam: Normal Bowel Sounds, Soft, No Distention, Tender (mild left lateral abdomen ) Back Exam: Normal Inspection, Full Range of Motion Extremities: No Pedal Edema. No: Increased Warmth Skin: Warm, Dry. No: Rash Psy/Mental Status: Alert, Anxious - Problem List & Annotations (1) Acute diastolic CHF (congestive heart failure), NYHA class 3 SNOMED Code(s): 321532432, 37776428, 274083153, 050100731 Code(s): I50.31 - ACUTE DIASTOLIC (CONGESTIVE) HEART FAILURE Status: Acute Current Visit: Yes (2) Diabetes mellitus type 2 SNOMED Code(s): 75886881 Code(s): E11.9 - TYPE 2 DIABETES MELLITUS WITHOUT COMPLICATIONS Status: Chronic Priority: Medium Current Visit: No (3) Atrial fibrillation with controlled ventricular response SNOMED Code(s): 56215388, 097498636 Code(s): I48.91 - UNSPECIFIED ATRIAL FIBRILLATION Status: Chronic Priority: Medium Current Visit: Yes - Problem List Review Problem List Initiated/Reviewed/Updated: Yes - My Orders Last 24 Hours: My Active Orders 12/20/16 09:29 Communication Order [RC] PRN Communication Order [RC] PRN 12/20/16 11:00 Insulin Aspart [NovoLOG] See Protocol SUBCUT QIDACANDBED 12/20/16 23:40 Ondansetron [Zofran] 4 mg IVPUSH Q6H PRN 12/21/16 07:00 Echo Comp wo Cont [US] Routine 12/21/16 11:30 GLUCOSE POC LAB TO COLLECT [POC] QIDACANDBED 12/21/16 16:30 GLUCOSE POC LAB TO COLLECT [POC] QIDACANDBED 12/21/16 21:00 GLUCOSE POC LAB TO COLLECT [POC] QIDACANDBED 12/22/16 05:00 CBC WITH AUTO DIFF [HEME] Timed COMPREHENSIVE METABOLIC PN,CMP [CHEM] Timed ESR [SEDIMENTATION RATE MANUAL] [HEME] Timed LACTATE DEHYDROGENASE,LDH [CHEM] Timed 12/22/16 07:30 GLUCOSE POC LAB TO COLLECT [POC] QIDACANDBED 12/22/16 11:30 GLUCOSE POC LAB TO COLLECT [POC] QIDACANDBED 12/22/16 16:30 GLUCOSE POC LAB TO COLLECT [POC] QIDACANDBED 12/22/16 21:00 GLUCOSE POC LAB TO COLLECT [POC] QIDACANDBED 12/23/16 07:30 GLUCOSE POC LAB TO COLLECT [POC] QIDACANDBED 12/23/16 11:30 GLUCOSE POC LAB TO COLLECT [POC] QIDACANDBED 12/23/16 16:30 GLUCOSE POC LAB TO COLLECT [POC] QIDACANDBED 12/23/16 21:00 GLUCOSE POC LAB TO COLLECT [POC] QIDACANDBED 12/24/16 07:30 GLUCOSE POC LAB TO COLLECT [POC] QIDACANDBED 12/24/16 11:30 GLUCOSE POC LAB TO COLLECT [POC] QIDACANDBED 12/24/16 16:30 GLUCOSE POC LAB TO COLLECT [POC] QIDACANDBED 12/24/16 21:00 GLUCOSE POC LAB TO COLLECT [POC] QIDACANDBED 12/25/16 07:30 GLUCOSE POC LAB TO COLLECT [POC] QIDACANDBED 12/25/16 11:30 GLUCOSE POC LAB TO COLLECT [POC] QIDACANDBED 12/25/16 16:30 GLUCOSE POC LAB TO COLLECT [POC] QIDACANDBED - Plan Plan:: Assessment and Plan - Heart failure with preserved ejection fraction - hypotensive after initial diuresis. Echo today shows good left ventricular function and no major valve issues. She does have a small to moderate pericardial effusion but no tamponade. IVC is at the upper limits of normal. Somewhat difficult volume examination today and I suspect she is at least mildly dry intravascularly. She seems to be short of breath beyond imaging findings but no strong evidence for pneumonia, no cough to suggest bronchitis and no significant volume issues. -Hold on further diuresis -Small fluid challenge -Cardiac monitoring -Continue BB -Discontinue ARB with hypotension -Recheck electrolytes and renal function in the morning Acute kidney injury - I suspect intravascular volume depletion with her persistent hypotension. Possible contribution from ZHAO inhibitor which was discontinued. -Gentle fluids -Repeat labs in the morning Anterior chest pain - seems more muscular and I suspect that mid back muscular pain is related. Possibly an overuse type issue. She also has a pleuritic component. Discontinuing ibuprofen with acute kidney injury. -Trial of steroids Leukocytosis - no evidence for infection or inflammation that I can find. I did look at her peripheral smear and there appear to be some immature cells. Peripheral smear has been sent for pathologist review. 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 -Repeat white blood cell count in the morning -Follow-up peripheral smear -outpatient bone marrow Type 2 diabetes mellitus - moderate elevation, likely to get worse now that she is on steroids. -discontinue metformin - high-dose Sliding-scale insulin Chronic atrial fibrillation - rate control slightly suboptimal at this time. -Continue beta andre -Continue rivaroxaban Maintenance issues - - DVT prophylaxis - rivaroxaban - GI prophylaxis - PPI - Nutrition - diabetic Disposition - anticipate discharge to home after the hospital stay Primary care physician - Debbi Jimenez M.D.
[2016-12-21] MEDS ORDERED: predniSONE 20 MG Tab PO ONE (13:00)
[2016-12-21] MEDS: Ibuprofen 400 MG Tab PO SCH (13:11)
[2016-12-21] MEDS: metFORMIN 500 MG Tab PO SCH (13:12)
[2016-12-21] MEDS ORDERED: Sodium Chloride 0.9% 500 ML IV ONE (13:30)
[2016-12-21] MEDS ORDERED: Insulin Aspart 100 Units/ML 3 ML Pen SUBCUT ONE ×2 (16:32→21:33)
[2016-12-21] MEDS ORDERED: Lactated Ringers 1,000 ML IV SCH (16:45)
[2016-12-21] MEDS ORDERED: Insulin Detemir 100 Units/ML 3 ML Pen SUBCUT SCH (21:00)
[2016-12-21] MEDS: Rivaroxaban 15 MG Tab PO SCH (22:04)
--- NOTE | 2016-12-21 22:11 | PCM.SN ---
- Free Text/Narrative Note: date; 12/21/16 time 21:32 Call from [facility] O: blood glucose 443, eating 100% of evening meal, IV fluids infusing A: hyperglycemia P: give Novolog 20 units subcut now. continue with present plan of care
[2016-12-22] MEDS ORDERED: Albuterol 0.083% 2.5 MG/3 ML Neb Soln NEB ONE (02:54)
[2016-12-22] MEDS: Levothyroxine 100 MCG Tab PO SCH (07:23)
[2016-12-22] MEDS: Pantoprazole 40 MG Tab.CR PO SCH (07:23)
[2016-12-22] MEDS: Insulin Aspart 100 Units/ML 3 ML Pen SUBCUT SCH ×4 (08:00→21:00)
[2016-12-22] MEDS: Metoprolol Tartrate 25 MG Tab PO SCH ×2 (08:01→21:36)
[2016-12-22] MEDS: Aspirin 81 MG Tab.EC PO SCH (08:01)
[2016-12-22] MEDS: Montelukast 10 MG Tab PO SCH (08:01)
[2016-12-22] MEDS: predniSONE 20 MG Tab PO SCH ×2 (08:01→17:16)
[2016-12-22] MEDS: LUTEIN 10 MG PO SCH (08:02)
[2016-12-22] MEDS: Vitamin B Complex Tab PO SCH (08:02)
[2016-12-22] MEDS: Loratadine 10 MG Tab PO SCH (08:10)
[2016-12-22] MEDS ORDERED: Insulin Detemir 100 Units/ML 3 ML Pen SUBCUT SCH ×2 (09:00→21:00)
--- NOTE | 2016-12-22 11:46 | PCM.PN ---
- General Info Date of Service: 12/22/16 Functional Status: Reports: Pain Controlled, Tolerating Diet - Review of Systems General: Reports: Weakness Pulmonary: Reports: Wheezing Gastrointestinal: Reports: Abdominal Pain Systems Review Comment:: difficulty overnight with shortness of breath. Blood pressures have been stable. Shortness of breath seemed to increase after fluid challenge yesterday afternoon and evening. Urine output remains sluggish. No significant fevers have been noted. White blood cell count is a little better today. Sedimentation rate is greater than 120. CT of the chest abdomen and pelvis this morning showed small bilateral effusions as well as a possible infiltrate developing. - Patient Data Vitals - Most Recent: Last Vital Signs Temp 35.7 C 12/22/16 07:41 Pulse 105 H 12/22/16 08:01 Resp 24 H 12/22/16 02:00 BP 139/81 12/22/16 08:01 Pulse Ox 90 L 12/22/16 07:41 Weight - Most Recent: 84.397 kg I&O - Last 24 Hours: Intake & Output 12/21/16 12/22/16 12/22/16 22:59 06:59 14:59 Intake Total 1400 240 Output Total 850 250 400 Balance 550 -250 -160 Lab Results Last 24 Hours: Laboratory Results - last 24 hr 12/22/16 12/22/16 Range/Units 05:00 05:00 WBC 24.9 H (4.5-11.0) K/uL RBC 2.76 L (3.30-5.50) M/uL Hgb 8.3 L (12.0-15.0) g/dL Hct 25.2 L (36.0-48.0) % MCV 91 (80-98) fL MCH 30 (27-31) pg MCHC 33 (32-36) % Plt Count 111 L (150-400) K/uL Add Manual Diff Yes Neutrophils % (Manual) 80 H (36-66) % Band Neutrophils % 3 L (5-11) % Lymphocytes % (Manual) 7 L (24-44) % Monocytes % (Manual) 10 H (2-6) % ESR > 120 H (0-25) mm/hr Sodium 126 L (140-148) mmol/L Potassium 4.3 (3.6-5.2) mmol/L Chloride 92 L (100-108) mmol/L Carbon Dioxide 25 (21-32) mmol/L Anion Gap 13.3 (5.0-14.0) mmol/L BUN 43 H (7-18) mg/dL Creatinine 1.8 H (0.6-1.0) mg/dL Est Cr Clr Drug Dosing 18.43 mL/min Estimated GFR (MDRD) 26 L (>60) Glucose 289 H (74-106) mg/dL Calcium 8.7 (8.5-10.1) mg/dL Total Bilirubin 1.3 H (0.2-1.0) mg/dL AST 24 (15-37) U/L ALT 27 (12-78) U/L Alkaline Phosphatase 192 H (46-116) U/L Lactate Dehydrogenase 159 (82-234) U/L Total Protein 7.6 (6.4-8.2) g/dL Albumin 2.7 L (3.4-5.0) g/dL Globulin 4.9 H (2.3-3.5) g/dL Albumin/Globulin Ratio 0.6 L (1.2-2.2) Med Orders - Current: Current Medications Acetaminophen (Tylenol) 650 mg PO Q4H PRN PRN Reason: Pain (Mild 1-3)/fever Last Admin: 12/19/16 17:36 Dose: 650 mg Aspirin (Halfprin) 81 mg PO DAILY [facility] Last Admin: 12/22/16 08:01 Dose: 81 mg Insulin Aspart (Novolog) 0 unit SUBCUT QIDACANDBED [facility] PRN Reason: Protocol Last Admin: 12/22/16 08:00 Dose: 9 unit Insulin Detemir (Levemir) 15 unit SUBCUT BID [facility] Last Admin: 12/22/16 08:38 Dose: 15 units Levothyroxine Sodium (Synthroid) 100 mcg PO ACBREAKFAST [facility] Last Admin: 12/22/16 07:23 Dose: 100 mcg Loratadine (Claritin) 10 mg PO DAILY [facility] Last Admin: 12/22/16 08:10 Dose: 10 mg Metoprolol Tartrate (Lopressor) 25 mg PO BID [facility] Last Admin: 12/22/16 08:01 Dose: 25 mg Montelukast Sodium (Singulair) 10 mg PO DAILY [facility] Last Admin: 12/22/16 08:01 Dose: 10 mg Lutein 10 Mg (Ptom) 0 mg PO DAILY [facility] Last Admin: 08/17/17 08:02 Dose: Not Given Ondansetron HCl (Zofran Odt) 4 mg PO Q6H PRN PRN Reason: Nausea able to take PO Last Admin: 12/20/16 07:07 Dose: 4 mg Ondansetron HCl (Zofran) 4 mg IVPUSH Q6H PRN PRN Reason: Nausea/Vomiting Last Admin: 12/20/16 23:56 Dose: 4 mg Pantoprazole Sodium (Protonix) 40 mg PO ACBREAKFAST [facility] Last Admin: 12/22/16 07:23 Dose: 40 mg Polyethylene Glycol (Miralax) 17 gm PO DAILY PRN PRN Reason: Constipation Prednisone (Prednisone) 20 mg PO BIDAC [facility] Last Admin: 12/22/16 08:01 Dose: 20 mg Rivaroxaban (Xarelto) 15 mg PO BEDTIME [facility] Last Admin: 12/21/16 22:04 Dose: 15 mg Sodium Chloride (Saline Flush) 10 ml FLUSH ASDIRECTED PRN PRN Reason: Keep Vein Open Last Admin: 12/19/16 09:56 Dose: 10 ml Vitamin B Complex (Vitamin B Complex) 1 each PO DAILY [facility] Last Admin: 12/22/16 08:02 Dose: 1 each Discontinued Medications Albuterol (Proventil Neb Soln) 2.5 mg NEB ONETIME ONE Stop: 12/22/16 02:55 Last Admin: 12/22/16 03:17 Dose: 2.5 mg Aspirin (Aspirin) 324 mg PO ONETIME ONE Stop: 12/19/16 09:30 Last Admin: 12/19/16 09:48 Dose: 324 mg Bisacodyl (Dulcolax) 10 mg RECTAL ONETIME ONE Stop: 12/20/16 23:41 Last Admin: 12/21/16 05:20 Dose: 10 mg Diphtheria/Tetanus/Acell Pertussis (Adacel) 0.5 ml IM .ONCE ONE Stop: 12/19/16 16:01 Furosemide (Lasix) 40 mg IVPUSH NOW ONE Stop: 12/19/16 13:01 Last Admin: 12/19/16 13:27 Dose: 40 mg Sodium Chloride (Normal Saline) 500 mls @ 999 mls/hr IV .BOLUS ONE Stop: 12/20/16 14:13 Last Admin: 12/20/16 14:09 Dose: 999 mls/hr Sodium Chloride (Normal Saline) 500 mls @ 500 mls/hr IV ASDIRECTED ONE Stop: 12/21/16 14:29 Last Admin: 12/21/16 13:27 Dose: 500 mls/hr Lactated Ringer's (Ringers, Lactated) 1,000 mls @ 100 mls/hr IV ASDIRECTED [facility] Last Admin: 12/21/16 17:14 Dose: 100 mls/hr Ibuprofen (Motrin) 400 mg PO TIDMEALS [facility] Last Admin: 12/21/16 13:11 Dose: Not Given Insulin Aspart (Novolog) 0 unit SUBCUT QIDACANDBED [facility] PRN Reason: Protocol Last Admin: 12/21/16 13:11 Dose: Not Given Insulin Aspart (Novolog) 20 unit SUBCUT ONETIME ONE Stop: 12/21/16 16:33 Last Admin: 12/21/16 17:15 Dose: 20 units Insulin Aspart (Novolog) 0 unit SUBCUT ONETIME ONE Stop: 12/21/16 21:34 Last Admin: 12/21/16 22:00 Dose: 20 units Insulin Detemir (Levemir) 15 unit SUBCUT BEDTIME [facility] Last Admin: 12/21/16 22:02 Dose: 15 units Lorazepam (Ativan) 0.5 mg IVPUSH ONETIME ONE Stop: 12/19/16 09:33 Last Admin: 12/19/16 09:49 Dose: 0.5 mg Metformin HCl (Glucophage) 1,000 mg PO BIDM [facility] Last Admin: 12/21/16 13:12 Dose: Not Given Morphine Sulfate (Morphine) 2 mg IVPUSH Q10M PRN PRN Reason: Chest Pain Stop: 12/20/16 09:30 Last Admin: 12/20/16 07:20 Dose: 2 mg Nitroglycerin (Nitrostat) 0.4 mg SL Q5M PRN PRN Reason: Chest Pain Stop: 12/20/16 09:29 Last Admin: 12/19/16 09:48 Dose: 0.4 mg Ondansetron HCl (Zofran) 4 mg IVPUSH ONETIME ONE Stop: 12/19/16 09:37 Last Admin: 12/19/16 09:56 Dose: 4 mg Pneumococcal Polyvalent Vaccine (Pneumovax 23) 0.5 ml IM .ONCE ONE Stop: 12/19/16 16:01 Prednisone (Prednisone) 40 mg PO ONETIME ONE Stop: 12/21/16 13:01 Last Admin: 12/21/16 13:11 Dose: 40 mg Valsartan (Diovan) 160 mg PO BEDTIME [facility] Last Admin: 12/19/16 22:32 Dose: Not Given Valsartan (Diovan) 80 mg PO BEDTIME [facility]AY - Exam Quality Assessment: Supplemental Oxygen General: Alert, Oriented, Cooperative, Moderate Distress HEENT: Pupils Equal Neck: Supple, JVD Lungs: Decreased Breath Sounds (both bases), Wheezing (diffuse exp wheezing). No: Normal Respiratory Effort (increased work of breathing ) Cardiovascular: Irregular Rhythm, Tachycardia GI/Abdominal Exam: Soft, No Distention, Tender (LLQ, moderate) Extremities: Pedal Edema (mild bilateral ankle edema). No: Increased Warmth Skin: Warm, Dry Psy/Mental Status: Alert, Normal Affect - Problem List & Annotations (1) Acute diastolic CHF (congestive heart failure), NYHA class 3 SNOMED Code(s): 864789254, 53536661, 332800358, 276271533 Code(s): I50.31 - ACUTE DIASTOLIC (CONGESTIVE) HEART FAILURE Status: Acute Current Visit: Yes (2) Diabetes mellitus type 2 SNOMED Code(s): 28143152 Code(s): E11.9 - TYPE 2 DIABETES MELLITUS WITHOUT COMPLICATIONS Status: Chronic Priority: Medium Current Visit: No (3) Atrial fibrillation with controlled ventricular response SNOMED Code(s): 11735943, 645179156 Code(s): I48.91 - UNSPECIFIED ATRIAL FIBRILLATION Status: Chronic Priority: Medium Current Visit: Yes - Problem List Review Problem List Initiated/Reviewed/Updated: Yes - My Orders Last 24 Hours: My Active Orders 12/21/16 17:00 Insulin Aspart [NovoLOG] See Protocol SUBCUT QIDACANDBED 12/22/16 08:00 predniSONE 20 mg PO BIDAC 12/22/16 09:00 Insulin Detemir [Levemir] 15 unit SUBCUT BID 12/22/16 11:41 RT Aerosol Therapy [RC] ASDIRECTED Albuterol [Proventil Neb Soln] 2.5 mg NEB Q4H PRN 12/22/16 11:42 Furosemide [Lasix] 40 mg IVPUSH ONETIME ONE 12/22/16 11:43 Chest Abdomen Pelvis wo Cont [CT] Routine 12/22/16 16:30 GLUCOSE POC LAB TO COLLECT [POC] QIDACANDBED 12/22/16 21:00 GLUCOSE POC LAB TO COLLECT [POC] QIDACANDBED 12/23/16 05:00 BASIC METABOLIC PANEL,BMP [CHEM] Timed CBC W/O DIFF,HEMOGRAM [HEME] Timed (1) MAGNESIUM [CHEM] Timed 12/23/16 07:30 GLUCOSE POC LAB TO COLLECT [POC] QIDACANDBED 12/23/16 11:30 GLUCOSE POC LAB TO COLLECT [POC] QIDACANDBED 12/23/16 16:30 GLUCOSE POC LAB TO COLLECT [POC] QIDACANDBED 12/23/16 21:00 GLUCOSE POC LAB TO COLLECT [POC] QIDACANDBED 12/24/16 07:30 GLUCOSE POC LAB TO COLLECT [POC] QIDACANDBED 12/24/16 11:30 GLUCOSE POC LAB TO COLLECT [POC] QIDACANDBED 12/24/16 16:30 GLUCOSE POC LAB TO COLLECT [POC] QIDACANDBED 12/24/16 21:00 GLUCOSE POC LAB TO COLLECT [POC] QIDACANDBED 12/25/16 07:30 GLUCOSE POC LAB TO COLLECT [POC] QIDACANDBED 12/25/16 11:30 GLUCOSE POC LAB TO COLLECT [POC] QIDACANDBED 12/25/16 16:30 GLUCOSE POC LAB TO COLLECT [POC] QIDACANDBED - Plan Plan:: Assessment and Plan - Heart failure with preserved ejection fraction - did not respond to gentle fluid challenge yesterday and this made oxygenation worse. Has JVD and crackles consistent with heart failure and CT of the chest did show small bilateral effusions. -dose of furosemide and reassess volume status -Cardiac monitoring -Continue BB -Discontinue ARB with hypotension -Recheck electrolytes and renal function in the morning Possible pneumonia - CT scan suggested possible developing infiltrates. She has not had impressive fevers but we have not had much luck improving oxygenation just with volume optimization. -Empiric antibiotics with ceftriaxone and doxycycline -Supplement oxygen -Cultures if she spikes a fever Acute kidney injury - I suspect intravascular volume depletion with her persistent hypotension. Possible contribution from ZHAO inhibitor which was discontinued. creatinine level has improved slightly overnight. -diuresis as above -Continue to hold ARB -Repeat labs in the morning Anterior chest pain - seems more muscular and I suspect that mid back muscular pain is related. Possibly an overuse type issue. She also has a pleuritic component. pain seems a little better today with steroids -Trial of steroids Leukocytosis - no evidence for infection or inflammation that I can find. level is a little better today. This could be a stress response in the setting of possible pneumonia. -Repeat white blood cell count in the morning -Follow-up peripheral smear -outpatient bone marrow Type 2 diabetes mellitus - significant elevation of sugars after steroids initiated. -discontinue metformin -high-dose Sliding-scale insulin -Levemir initiated last night, changed to twice daily dosing well on steroids Chronic atrial fibrillation - rate control slightly suboptimal at this time. -Continue beta andre, consider slight increase of blood pressure tolerates -Continue rivaroxaban Maintenance issues - - DVT prophylaxis - rivaroxaban - GI prophylaxis - PPI - Nutrition - diabetic Disposition - anticipate discharge to home after the hospital stay Primary care physician - Debbi Jimenez M.D.
[2016-12-22] MEDS ORDERED: Furosemide 40 MG/4 ML VIAL IVPUSH ONE (12:30)
[2016-12-22] MEDS: Albuterol 0.083% 2.5 MG/3 ML Neb Soln NEB PRN ×2 (13:27→21:45)
--- NOTE | 2016-12-22 14:04 | CT ---
Chest Abdomen Pelvis wo Cont INDICATION: worsening hypoxia, LLQ abd pain TECHNIQUE: CT images of the chest, abdomen and pelvis performed. Coronal reformatted images obtain ed. Exam performed without oral or IV contrast DLP: 1253 mGycm COMPARISON: CT chest 12/19/2016. CT abdomen pelvis 04/09/2011. FINDINGS: Chest: Patchy groundglass infiltrates bilaterally, more prominent on the right, as well as small pleural ef fusions, all new since the prior study. Increase in pericardial effusion. Cardiomegaly. Compressive atelectasis in both lower lobes. Thoracic aorta normal diameter. Coronary artery calcifications. Abdomen and pelvis: Liver and gallbladder unremarkable. Calcified splenic granulomas. Fatty replacement in the pancreas. No adrenal nodules. No renal calculi or hydronephrosis. Stool throughout colon but no signs of edgar l obstruction. Diverticulosis without evidence of diverticulitis. Postoperative changes lower pelvis . No evidence of hernia. Appendix not visualized but no CT signs of acute appendicitis. Urinary blad he unremarkable. Trace amount of free fluid in the pelvis likely physiologic. Otherwise no evidence of ascites. No free air. Degenerative and hypertrophic change in the spine. IMPRESSION: 1. Bilateral pulmonary infiltrates and pleural effusions. Findings may be on an infectious basis. Pu lmonary edema, including CHF also possible. 2. Increase in pericardial effusion. 3. Nothing acute in the abdomen or pelvis.
[2016-12-22] MEDS ORDERED: Insulin Aspart 100 Units/ML 3 ML Pen SUBCUT ONE ×2 (16:45→21:00)
[2016-12-22] MEDS: cefTRIAXone 1 GM in Sodium Chloride 0.9% 50 ML IV SCH (17:15)
[2016-12-22] MEDS: Doxycycline 100 MG in Sodium Chloride 0.9% 100 ML IV SCH (17:15)
[2016-12-22] MEDS: Rivaroxaban 15 MG Tab PO SCH (21:36)
[2016-12-22] MEDS: Insulin Detemir 100 Units/ML 3 ML Pen SUBCUT SCH (21:39)
[2016-12-23] MEDS: Doxycycline 100 MG in Sodium Chloride 0.9% 100 ML IV SCH ×2 (03:51→17:18)
[2016-12-23] MEDS: Insulin Aspart 100 Units/ML 3 ML Pen SUBCUT SCH ×4 (08:06→21:00)
[2016-12-23] MEDS: Pantoprazole 40 MG Tab.CR PO SCH (08:21)
[2016-12-23] MEDS: predniSONE 20 MG Tab PO SCH ×2 (08:21→16:34)
[2016-12-23] MEDS: Levothyroxine 100 MCG Tab PO SCH (08:22)
[2016-12-23] MEDS: Loratadine 10 MG Tab PO SCH (08:30)
[2016-12-23] MEDS: Aspirin 81 MG Tab.EC PO SCH (08:31)
[2016-12-23] MEDS: Vitamin B Complex Tab PO SCH (08:32)
[2016-12-23] MEDS: Montelukast 10 MG Tab PO SCH (08:32)
[2016-12-23] MEDS: Metoprolol Tartrate 25 MG Tab PO SCH ×2 (08:32→21:02)
[2016-12-23] MEDS: Insulin Detemir 100 Units/ML 3 ML Pen SUBCUT SCH ×2 (08:33→21:01)
[2016-12-23] MEDS: LUTEIN 10 MG PO SCH (10:34)
--- NOTE | 2016-12-23 10:59 | PCM.PN ---
- General Info Date of Service: 12/23/16 Functional Status: Reports: Pain Controlled - Review of Systems General: Reports: Weakness Pulmonary: Reports: Shortness of Breath, Cough Cardiovascular: Reports: Chest Pain (mild) Systems Review Comment:: No acute events overnight. Feeling a little better today with less shortness of breath. Still very winded with any activity. Blood sugars are finally starting to come down after some fairly significant elevations yesterday evening. Heart rate is trending down. Kidney function is improving. Hemoglobin has dropped down below 8 today. No complaints of abdominal pain. - Patient Data Vitals - Most Recent: Last Vital Signs Temp 35.3 C 12/23/16 07:18 Pulse 92 12/23/16 08:32 Resp 19 12/23/16 07:18 BP 129/68 12/23/16 08:32 Pulse Ox 93 L 12/23/16 07:18 Weight - Most Recent: 84.397 kg I&O - Last 24 Hours: Intake & Output 12/22/16 12/23/16 12/23/16 22:59 06:59 14:59 Intake Total 1080 220 940 Output Total 950 1000 500 Balance 130 -780 440 Lab Results Last 24 Hours: Laboratory Results - last 24 hr 12/20/16 12/23/16 12/23/16 Range/Units 08:43 04:36 04:36 WBC 17.6 H (4.5-11.0) K/uL RBC 2.59 L (3.30-5.50) M/uL Hgb 7.7 L (12.0-15.0) g/dL Hct 23.5 L (36.0-48.0) % MCV 91 (80-98) fL MCH 30 (27-31) pg MCHC 33 (32-36) % Plt Count 120 L (150-400) K/uL Total Counted 100 Segmented Neutrophils 64 (38-70) % Lymphocytes 3 L (21-49) % Monocytes 33 H (3-11) % Diff Path Review See below WBC Morphology Normal Platelet Morphology Decreased RBC Morphology Normal Sodium 129 L (140-148) mmol/L Potassium 4.3 (3.6-5.2) mmol/L Chloride 95 L (100-108) mmol/L Carbon Dioxide 26 (21-32) mmol/L Anion Gap 12.3 (5.0-14.0) mmol/L BUN 42 H (7-18) mg/dL Creatinine 1.4 H (0.6-1.0) mg/dL Est Cr Clr Drug Dosing 23.69 mL/min Estimated GFR (MDRD) 35 L (>60) Glucose 298 H (74-106) mg/dL Calcium 8.5 (8.5-10.1) mg/dL Magnesium 1.6 L (1.8-2.4) mg/dL Ref Lab Pathologist See below Med Orders - Current: Current Medications Acetaminophen (Tylenol) 650 mg PO Q4H PRN PRN Reason: Pain (Mild 1-3)/fever Last Admin: 12/19/16 17:36 Dose: 650 mg Albuterol (Proventil Neb Soln) 2.5 mg NEB Q4H PRN PRN Reason: Wheezing Last Admin: 12/22/16 21:45 Dose: 2.5 mg Aspirin (Halfprin) 81 mg PO DAILY [facility] Last Admin: 12/23/16 08:31 Dose: 81 mg Diphtheria/Tetanus/Acell Pertussis (Adacel) 0.5 ml IM .ONCE ONE Stop: 12/24/16 10:01 Doxycycline Hyclate 100 mg/ (Sodium Chloride) 100 mls @ 100 mls/hr IV Q12H [facility] Last Admin: 12/23/16 03:51 Dose: 100 mls/hr Ceftriaxone Sodium 1 gm/ (Sodium Chloride) 50 mls @ 100 mls/hr IV Q24H [facility] Last Admin: 12/22/16 17:15 Dose: 100 mls/hr Insulin Aspart (Novolog) 0 unit SUBCUT QIDACANDBED [facility] PRN Reason: Protocol Last Admin: 12/23/16 08:06 Dose: 9 unit Insulin Detemir (Levemir) 0 unit SUBCUT BID [facility] Last Admin: 12/23/16 08:33 Dose: 30 units Levothyroxine Sodium (Synthroid) 100 mcg PO ACBREAKFAST [facility] Last Admin: 12/23/16 08:22 Dose: 100 mcg Loratadine (Claritin) 10 mg PO DAILY [facility] Last Admin: 12/23/16 08:30 Dose: 10 mg Metoprolol Tartrate (Lopressor) 25 mg PO BID [facility] Last Admin: 12/23/16 08:32 Dose: 25 mg Montelukast Sodium (Singulair) 10 mg PO DAILY [facility] Last Admin: 12/23/16 08:32 Dose: 10 mg Lutein 10 Mg (Ptom) 0 mg PO DAILY [facility] Last Admin: 12/23/16 10:34 Dose: Not Given Ondansetron HCl (Zofran Odt) 4 mg PO Q6H PRN PRN Reason: Nausea able to take PO Last Admin: 12/20/16 07:07 Dose: 4 mg Ondansetron HCl (Zofran) 4 mg IVPUSH Q6H PRN PRN Reason: Nausea/Vomiting Last Admin: 12/20/16 23:56 Dose: 4 mg Pantoprazole Sodium (Protonix) 40 mg PO ACBREAKFAST [facility] Last Admin: 12/23/16 08:21 Dose: 40 mg Polyethylene Glycol (Miralax) 17 gm PO DAILY PRN PRN Reason: Constipation Prednisone (Prednisone) 20 mg PO BIDAC [facility] Last Admin: 12/23/16 08:21 Dose: 20 mg Rivaroxaban (Xarelto) 15 mg PO BEDTIME [facility] Last Admin: 12/22/16 21:36 Dose: 15 mg Sodium Chloride (Saline Flush) 10 ml FLUSH ASDIRECTED PRN PRN Reason: Keep Vein Open Last Admin: 12/19/16 09:56 Dose: 10 ml Vitamin B Complex (Vitamin B Complex) 1 each PO DAILY [facility] Last Admin: 12/23/16 08:32 Dose: 1 each Discontinued Medications Albuterol (Proventil Neb Soln) 2.5 mg NEB ONETIME ONE Stop: 12/22/16 02:55 Last Admin: 12/22/16 03:17 Dose: 2.5 mg Aspirin (Aspirin) 324 mg PO ONETIME ONE Stop: 12/19/16 09:30 Last Admin: 12/19/16 09:48 Dose: 324 mg Bisacodyl (Dulcolax) 10 mg RECTAL ONETIME ONE Stop: 12/20/16 23:41 Last Admin: 12/21/16 05:20 Dose: 10 mg Furosemide (Lasix) 40 mg IVPUSH NOW ONE Stop: 12/19/16 13:01 Last Admin: 12/19/16 13:27 Dose: 40 mg Furosemide (Lasix) 40 mg IVPUSH ONETIME ONE Stop: 12/22/16 12:31 Last Admin: 12/22/16 12:34 Dose: 40 mg Sodium Chloride (Normal Saline) 500 mls @ 999 mls/hr IV .BOLUS ONE Stop: 12/20/16 14:13 Last Admin: 12/20/16 14:09 Dose: 999 mls/hr Sodium Chloride (Normal Saline) 500 mls @ 500 mls/hr IV ASDIRECTED ONE Stop: 12/21/16 14:29 Last Admin: 12/21/16 13:27 Dose: 500 mls/hr Lactated Ringer's (Ringers, Lactated) 1,000 mls @ 100 mls/hr IV ASDIRECTED [facility] Last Admin: 12/21/16 17:14 Dose: 100 mls/hr Ibuprofen (Motrin) 400 mg PO TIDMEALS [facility] Last Admin: 12/21/16 13:11 Dose: Not Given Insulin Aspart (Novolog) 0 unit SUBCUT QIDACANDBED [facility] PRN Reason: Protocol Last Admin: 12/21/16 13:11 Dose: Not Given Insulin Aspart (Novolog) 20 unit SUBCUT ONETIME ONE Stop: 12/21/16 16:33 Last Admin: 12/21/16 17:15 Dose: 20 units Insulin Aspart (Novolog) 0 unit SUBCUT ONETIME ONE Stop: 12/21/16 21:34 Last Admin: 12/21/16 22:00 Dose: 20 units Insulin Aspart (Novolog) 20 unit SUBCUT ONETIME ONE Stop: 12/22/16 16:46 Last Admin: 12/22/16 17:18 Dose: 20 units Insulin Aspart (Novolog) 0 unit SUBCUT ONETIME ONE Stop: 12/22/16 21:01 Last Admin: 12/22/16 21:39 Dose: 20 units Insulin Detemir (Levemir) 15 unit SUBCUT BEDTIME [facility] Last Admin: 12/21/16 22:02 Dose: 15 units Insulin Detemir (Levemir) 15 unit SUBCUT BID [facility] Last Admin: 12/22/16 08:38 Dose: 15 units Insulin Detemir (Levemir) 20 unit SUBCUT BID [facility] Lorazepam (Ativan) 0.5 mg IVPUSH ONETIME ONE Stop: 12/19/16 09:33 Last Admin: 12/19/16 09:49 Dose: 0.5 mg Metformin HCl (Glucophage) 1,000 mg PO BIDM [facility] Last Admin: 12/21/16 13:12 Dose: Not Given Morphine Sulfate (Morphine) 2 mg IVPUSH Q10M PRN PRN Reason: Chest Pain Stop: 12/20/16 09:30 Last Admin: 12/20/16 07:20 Dose: 2 mg Nitroglycerin (Nitrostat) 0.4 mg SL Q5M PRN PRN Reason: Chest Pain Stop: 12/20/16 09:29 Last Admin: 12/19/16 09:48 Dose: 0.4 mg Ondansetron HCl (Zofran) 4 mg IVPUSH ONETIME ONE Stop: 12/19/16 09:37 Last Admin: 12/19/16 09:56 Dose: 4 mg Pneumococcal Polyvalent Vaccine (Pneumovax 23) 0.5 ml IM .ONCE ONE Stop: 12/19/16 16:01 Prednisone (Prednisone) 40 mg PO ONETIME ONE Stop: 12/21/16 13:01 Last Admin: 12/21/16 13:11 Dose: 40 mg Valsartan (Diovan) 160 mg PO BEDTIME [facility] Last Admin: 12/19/16 22:32 Dose: Not Given Valsartan (Diovan) 80 mg PO BEDTIME [facility] - Exam Quality Assessment: Supplemental Oxygen General: Alert, Oriented, Cooperative, No Acute Distress Neck: Supple Lungs: Rales (both bases). No: Normal Respiratory Effort (mild increase in work of breathing ), Wheezing Cardiovascular: Regular Rate, Irregular Rhythm GI/Abdominal Exam: Normal Bowel Sounds, Soft, Non-Tender, No Distention Extremities: No Pedal Edema. No: Increased Warmth Skin: Warm, Dry Psy/Mental Status: Alert, Normal Affect - Problem List & Annotations (1) Acute diastolic CHF (congestive heart failure), NYHA class 3 SNOMED Code(s): 803202741, 65305779, 485891137, 321836644 Code(s): I50.31 - ACUTE DIASTOLIC (CONGESTIVE) HEART FAILURE Status: Acute Current Visit: Yes (2) Diabetes mellitus type 2 SNOMED Code(s): 70200978 Code(s): E11.9 - TYPE 2 DIABETES MELLITUS WITHOUT COMPLICATIONS Status: Chronic Priority: Medium Current Visit: No (3) Atrial fibrillation with controlled ventricular response SNOMED Code(s): 51077064, 694122606 Code(s): I48.91 - UNSPECIFIED ATRIAL FIBRILLATION Status: Chronic Priority: Medium Current Visit: Yes - Problem List Review Problem List Initiated/Reviewed/Updated: Yes - My Orders Last 24 Hours: My Active Orders 12/22/16 11:41 RT Aerosol Therapy [RC] ASDIRECTED Albuterol [Proventil Neb Soln] 2.5 mg NEB Q4H PRN 12/22/16 15:30 cefTRIAXone [Rocephin] 1 gm Sodium Chloride 0.9% [Normal Saline] 50 ml IV Q24H 12/22/16 16:00 Doxycycline [Vibramycin] 100 mg Sodium Chloride 0.9% [Normal Saline] 100 ml IV Q12H 12/22/16 21:00 Insulin Detemir [Levemir] 0 unit SUBCUT BID 12/23/16 09:57 Transfuse Red Blood Cells [COMM] Routine 12/23/16 10:15 RED BLOOD CELLS LP [BBK] Routine TYPE AND SCREEN [BBK] Routine 12/23/16 11:30 GLUCOSE POC LAB TO COLLECT [POC] QIDACANDBED 12/23/16 14:00 Furosemide [Lasix] 20 mg IVPUSH ONETIME ONE 12/23/16 16:30 GLUCOSE POC LAB TO COLLECT [POC] QIDACANDBED 12/23/16 21:00 GLUCOSE POC LAB TO COLLECT [POC] QIDACANDBED 12/24/16 05:00 BASIC METABOLIC PANEL,BMP [CHEM] Timed CBC W/O DIFF,HEMOGRAM [HEME] Timed (1) 12/24/16 07:30 GLUCOSE POC LAB TO COLLECT [POC] QIDACANDBED 12/24/16 10:00 Diphth,Pertuss(Acell),Tet Vac [Adacel] 0.5 ml IM .ONCE ONE 12/24/16 11:30 GLUCOSE POC LAB TO COLLECT [POC] QIDACANDBED 12/24/16 16:30 GLUCOSE POC LAB TO COLLECT [POC] QIDACANDBED 12/24/16 21:00 GLUCOSE POC LAB TO COLLECT [POC] QIDACANDBED 12/25/16 07:30 GLUCOSE POC LAB TO COLLECT [POC] QIDACANDBED 12/25/16 11:30 GLUCOSE POC LAB TO COLLECT [POC] QIDACANDBED 12/25/16 16:30 GLUCOSE POC LAB TO COLLECT [POC] QIDACANDBED - Plan Plan:: Assessment and Plan - Heart failure with preserved ejection fraction - volume status seems to be nearing euvolemic at this time. Heart rate has been trending towards improvement. Clinically improving. -dose of furosemide and reassess volume status -Cardiac monitoring -Continue BB -Discontinue ARB with hypotension -Recheck electrolytes and renal function in the morning Probable pneumonia - CT scan suggested possible developing infiltrates. Oxygenation has been improving since antibiotics were initiated yesterday. -Empiric antibiotics with ceftriaxone and doxycycline -Supplement oxygen -Cultures if she spikes a fever Acute kidney injury - I suspect intravascular volume depletion with her persistent hypotension. Possible contribution from ZHAO inhibitor which was discontinued. creatinine level continues to improve. -diuresis as above -Continue to hold ARB -Repeat labs in the morning Anterior chest pain - mostly muscular/inflammatory pain. Clinically improving. -Trial of steroids, start to wean steroids tomorrow Leukocytosis - secondary to pneumonia, peripheral smear suggests inflammation versus myelodysplasia. -Repeat white blood cell count in the morning -Consider outpatient bone marrow Type 2 diabetes mellitus - significant elevation of sugars after steroids initiated. finally getting a handle on sugars but still elevated. -discontinue metformin -high-dose Sliding-scale insulin -Levemir initiated last night, changed to twice daily dosing well on steroids Chronic atrial fibrillation - rate control has been improving. -Continue beta andre, consider slight increase of blood pressure tolerates -Continue rivaroxaban Maintenance issues - - DVT prophylaxis - rivaroxaban - GI prophylaxis - PPI - Nutrition - diabetic Disposition - anticipate discharge to home after the hospital stay Primary care physician - Debbi Jimenez M.D.
[2016-12-23] MEDS ORDERED: Furosemide 20 MG/2 ML VIAL IVPUSH ONE (14:00)
[2016-12-23] MEDS: Albuterol 0.083% 2.5 MG/3 ML Neb Soln NEB PRN (14:43)
[2016-12-23] MEDS: cefTRIAXone 1 GM in Sodium Chloride 0.9% 50 ML IV SCH (16:30)
[2016-12-23] MEDS: Rivaroxaban 15 MG Tab PO SCH (21:03)
[2016-12-24] MEDS: Doxycycline 100 MG in Sodium Chloride 0.9% 100 ML IV SCH ×2 (03:37→16:37)
[2016-12-24] MEDS: Pantoprazole 40 MG Tab.CR PO SCH (07:47)
[2016-12-24] MEDS: Levothyroxine 100 MCG Tab PO SCH (07:47)
[2016-12-24] MEDS: predniSONE 20 MG Tab PO SCH (07:48)
[2016-12-24] MEDS: Insulin Aspart 100 Units/ML 3 ML Pen SUBCUT SCH ×4 (07:54→21:05)
[2016-12-24] MEDS: Insulin Detemir 100 Units/ML 3 ML Pen SUBCUT SCH (08:00)
[2016-12-24] MEDS: Aspirin 81 MG Tab.EC PO SCH (08:06)
[2016-12-24] MEDS: Montelukast 10 MG Tab PO SCH (08:06)
[2016-12-24] MEDS: Loratadine 10 MG Tab PO SCH (08:06)
[2016-12-24] MEDS: Metoprolol Tartrate 25 MG Tab PO SCH ×2 (08:06→21:05)
[2016-12-24] MEDS: Vitamin B Complex Tab PO SCH (08:06)
[2016-12-24] MEDS: LUTEIN 10 MG PO SCH (08:07)
[2016-12-24] MEDS ORDERED: Diphtheria,Pertussis(Acell),Tetanus Vaccine 0.5 ML SDV IM ONE (10:00)
--- NOTE | 2016-12-24 12:32 | PCM.PN ---
- General Info Date of Service: 12/24/16 Functional Status: Reports: Pain Controlled, Ambulating - Review of Systems General: Reports: Weakness Pulmonary: Reports: Shortness of Breath, Cough Systems Review Comment:: no acute events overnight. Still feels weak and short of breath with any activity. Heart rate has continued to improve. Oxygenation has improved slightly compared to yesterday. Tolerated her blood transfusion last night and hemoglobin responded nicely. She has not had any fevers. She has been doing a fair amount of coughing. Tolerating current antibiotics. Blood sugars have been better controlled. - Patient Data Vitals - Most Recent: Last Vital Signs Temp 35.8 C 12/24/16 11:00 Pulse 107 H 12/24/16 11:00 Resp 20 12/24/16 11:00 BP 150/62 H 12/24/16 11:00 Pulse Ox 92 L 12/24/16 11:00 Weight - Most Recent: 84.397 kg I&O - Last 24 Hours: Intake & Output 12/23/16 12/24/16 12/24/16 22:59 06:59 14:59 Intake Total 690 100 960 Output Total 1200 750 300 Balance -510 -650 660 Lab Results Last 24 Hours: Laboratory Results - last 24 hr 12/23/16 12/24/16 12/24/16 Range/Units 10:15 05:59 05:59 WBC 22.0 H (4.5-11.0) K/uL RBC 2.95 L (3.30-5.50) M/uL Hgb 9.0 L (12.0-15.0) g/dL Hct 26.5 L (36.0-48.0) % MCV 90 (80-98) fL MCH 31 (27-31) pg MCHC 34 (32-36) % Plt Count 153 (150-400) K/uL Sodium 132 L (140-148) mmol/L Potassium 5.4 H (3.6-5.2) mmol/L Chloride 97 L (100-108) mmol/L Carbon Dioxide 28 (21-32) mmol/L Anion Gap 12.4 (5.0-14.0) mmol/L BUN 40 H (7-18) mg/dL Creatinine 1.1 H (0.6-1.0) mg/dL Est Cr Clr Drug Dosing 30.16 mL/min Estimated GFR (MDRD) 47 L (>60) Glucose 209 H (74-106) mg/dL Calcium 8.4 L (8.5-10.1) mg/dL Blood Type B NEGATIVE Gel Antibody Screen Positive A* Antibody Identification Inconclusive Crossmatch See Detail Med Orders - Current: Current Medications Acetaminophen (Tylenol) 650 mg PO Q4H PRN PRN Reason: Pain (Mild 1-3)/fever Last Admin: 12/19/16 17:36 Dose: 650 mg Albuterol (Proventil Neb Soln) 2.5 mg NEB Q4H PRN PRN Reason: Wheezing Last Admin: 12/23/16 14:43 Dose: 2.5 mg Aspirin (Halfprin) 81 mg PO DAILY [facility] Last Admin: 12/24/16 08:06 Dose: 81 mg Diphtheria/Tetanus/Acell Pertussis (Adacel) 0.5 ml IM .ONCE ONE Stop: 12/25/16 10:31 Furosemide (Lasix) 20 mg PO DAILY [facility] Doxycycline Hyclate 100 mg/ (Sodium Chloride) 100 mls @ 100 mls/hr IV Q12H [facility] Last Admin: 12/24/16 03:37 Dose: 100 mls/hr Ceftriaxone Sodium 1 gm/ (Sodium Chloride) 50 mls @ 100 mls/hr IV Q24H [facility] Last Admin: 12/23/16 16:30 Dose: 100 mls/hr Insulin Aspart (Novolog) 0 unit SUBCUT QIDACANDBED [facility] PRN Reason: Protocol Last Admin: 12/24/16 11:43 Dose: 9 unit Insulin Detemir (Levemir) 20 unit SUBCUT BID [facility] Levothyroxine Sodium (Synthroid) 100 mcg PO ACBREAKFAST [facility] Last Admin: 12/24/16 07:47 Dose: 100 mcg Loratadine (Claritin) 10 mg PO DAILY [facility] Last Admin: 12/24/16 08:06 Dose: 10 mg Metoprolol Tartrate (Lopressor) 25 mg PO BID [facility] Last Admin: 12/24/16 08:06 Dose: 25 mg Montelukast Sodium (Singulair) 10 mg PO DAILY [facility] Last Admin: 12/24/16 08:06 Dose: 10 mg Lutein 10 Mg (Ptom) 0 mg PO DAILY [facility] Last Admin: 12/24/16 08:07 Dose: Not Given Ondansetron HCl (Zofran Odt) 4 mg PO Q6H PRN PRN Reason: Nausea able to take PO Last Admin: 12/20/16 07:07 Dose: 4 mg Ondansetron HCl (Zofran) 4 mg IVPUSH Q6H PRN PRN Reason: Nausea/Vomiting Last Admin: 12/20/16 23:56 Dose: 4 mg Pantoprazole Sodium (Protonix) 40 mg PO ACBREAKFAST [facility] Last Admin: 12/24/16 07:47 Dose: 40 mg Polyethylene Glycol (Miralax) 17 gm PO DAILY PRN PRN Reason: Constipation Prednisone (Prednisone) 20 mg PO DAILY [facility] Rivaroxaban (Xarelto) 15 mg PO BEDTIME [facility] Last Admin: 12/23/16 21:03 Dose: 15 mg Sodium Chloride (Saline Flush) 10 ml FLUSH ASDIRECTED PRN PRN Reason: Keep Vein Open Last Admin: 12/19/16 09:56 Dose: 10 ml Vitamin B Complex (Vitamin B Complex) 1 each PO DAILY [facility] Last Admin: 12/24/16 08:06 Dose: 1 each Discontinued Medications Albuterol (Proventil Neb Soln) 2.5 mg NEB ONETIME ONE Stop: 12/22/16 02:55 Last Admin: 12/22/16 03:17 Dose: 2.5 mg Aspirin (Aspirin) 324 mg PO ONETIME ONE Stop: 12/19/16 09:30 Last Admin: 12/19/16 09:48 Dose: 324 mg Bisacodyl (Dulcolax) 10 mg RECTAL ONETIME ONE Stop: 12/20/16 23:41 Last Admin: 12/21/16 05:20 Dose: 10 mg Diphtheria/Tetanus/Acell Pertussis (Adacel) 0.5 ml IM .ONCE ONE Stop: 12/24/16 10:01 Last Admin: 12/24/16 10:56 Dose: Not Given Furosemide (Lasix) 40 mg IVPUSH NOW ONE Stop: 12/19/16 13:01 Last Admin: 12/19/16 13:27 Dose: 40 mg Furosemide (Lasix) 40 mg IVPUSH ONETIME ONE Stop: 12/22/16 12:31 Last Admin: 12/22/16 12:34 Dose: 40 mg Furosemide (Lasix) 20 mg IVPUSH ONETIME ONE Stop: 12/23/16 14:01 Last Admin: 12/23/16 15:20 Dose: 20 mg Sodium Chloride (Normal Saline) 500 mls @ 999 mls/hr IV .BOLUS ONE Stop: 12/20/16 14:13 Last Admin: 12/20/16 14:09 Dose: 999 mls/hr Sodium Chloride (Normal Saline) 500 mls @ 500 mls/hr IV ASDIRECTED ONE Stop: 12/21/16 14:29 Last Admin: 12/21/16 13:27 Dose: 500 mls/hr Lactated Ringer's (Ringers, Lactated) 1,000 mls @ 100 mls/hr IV ASDIRECTED [facility] Last Admin: 12/21/16 17:14 Dose: 100 mls/hr Ibuprofen (Motrin) 400 mg PO TIDMEALS [facility] Last Admin: 12/21/16 13:11 Dose: Not Given Insulin Aspart (Novolog) 0 unit SUBCUT QIDACANDBED [facility] PRN Reason: Protocol Last Admin: 12/21/16 13:11 Dose: Not Given Insulin Aspart (Novolog) 20 unit SUBCUT ONETIME ONE Stop: 12/21/16 16:33 Last Admin: 12/21/16 17:15 Dose: 20 units Insulin Aspart (Novolog) 0 unit SUBCUT ONETIME ONE Stop: 12/21/16 21:34 Last Admin: 12/21/16 22:00 Dose: 20 units Insulin Aspart (Novolog) 20 unit SUBCUT ONETIME ONE Stop: 12/22/16 16:46 Last Admin: 12/22/16 17:18 Dose: 20 units Insulin Aspart (Novolog) 0 unit SUBCUT ONETIME ONE Stop: 12/22/16 21:01 Last Admin: 12/22/16 21:39 Dose: 20 units Insulin Detemir (Levemir) 15 unit SUBCUT BEDTIME [facility] Last Admin: 12/21/16 22:02 Dose: 15 units Insulin Detemir (Levemir) 15 unit SUBCUT BID [facility] Last Admin: 12/22/16 08:38 Dose: 15 units Insulin Detemir (Levemir) 20 unit SUBCUT BID [facility] Insulin Detemir (Levemir) 0 unit SUBCUT BID [facility] Last Admin: 12/24/16 08:00 Dose: 30 units Lorazepam (Ativan) 0.5 mg IVPUSH ONETIME ONE Stop: 12/19/16 09:33 Last Admin: 12/19/16 09:49 Dose: 0.5 mg Metformin HCl (Glucophage) 1,000 mg PO BIDM [facility] Last Admin: 12/21/16 13:12 Dose: Not Given Morphine Sulfate (Morphine) 2 mg IVPUSH Q10M PRN PRN Reason: Chest Pain Stop: 12/20/16 09:30 Last Admin: 12/20/16 07:20 Dose: 2 mg Nitroglycerin (Nitrostat) 0.4 mg SL Q5M PRN PRN Reason: Chest Pain Stop: 12/20/16 09:29 Last Admin: 12/19/16 09:48 Dose: 0.4 mg Ondansetron HCl (Zofran) 4 mg IVPUSH ONETIME ONE Stop: 12/19/16 09:37 Last Admin: 12/19/16 09:56 Dose: 4 mg Pneumococcal Polyvalent Vaccine (Pneumovax 23) 0.5 ml IM .ONCE ONE Stop: 12/19/16 16:01 Prednisone (Prednisone) 40 mg PO ONETIME ONE Stop: 12/21/16 13:01 Last Admin: 12/21/16 13:11 Dose: 40 mg Prednisone (Prednisone) 20 mg PO BIDAC [facility] Last Admin: 12/24/16 07:48 Dose: 20 mg Valsartan (Diovan) 160 mg PO BEDTIME [facility] Last Admin: 12/19/16 22:32 Dose: Not Given Valsartan (Diovan) 80 mg PO BEDTIME [facility] - Exam Quality Assessment: Supplemental Oxygen General: Alert, Oriented, Cooperative, No Acute Distress Neck: Supple Lungs: Clear to Auscultation, Rales (rare at bases). No: Normal Respiratory Effort (mild increased work of breathing ) Cardiovascular: Regular Rate, Irregular Rhythm GI/Abdominal Exam: Soft, No Distention Extremities: No Pedal Edema. No: Increased Warmth Skin: Warm, Dry Psy/Mental Status: Alert, Normal Affect - Problem List & Annotations (1) Acute diastolic CHF (congestive heart failure), NYHA class 3 SNOMED Code(s): 826210029, 16014120, 362316704, 153067695 Code(s): I50.31 - ACUTE DIASTOLIC (CONGESTIVE) HEART FAILURE Status: Acute Current Visit: Yes (2) Diabetes mellitus type 2 SNOMED Code(s): 41407951 Code(s): E11.9 - TYPE 2 DIABETES MELLITUS WITHOUT COMPLICATIONS Status: Chronic Priority: Medium Current Visit: No (3) Atrial fibrillation with controlled ventricular response SNOMED Code(s): 49361393, 445108500 Code(s): I48.91 - UNSPECIFIED ATRIAL FIBRILLATION Status: Chronic Priority: Medium Current Visit: Yes - Problem List Review Problem List Initiated/Reviewed/Updated: Yes - My Orders Last 24 Hours: My Active Orders 12/24/16 12:30 Furosemide [Lasix] 20 mg PO DAILY 12/24/16 16:30 GLUCOSE POC LAB TO COLLECT [POC] QIDACANDBED 12/24/16 21:00 GLUCOSE POC LAB TO COLLECT [POC] QIDACANDBED Insulin Detemir [Levemir] 20 unit SUBCUT BID 12/25/16 05:00 BASIC METABOLIC PANEL,BMP [CHEM] Timed CBC W/O DIFF,HEMOGRAM [HEME] Timed (1) 12/25/16 07:30 GLUCOSE POC LAB TO COLLECT [POC] QIDACANDBED 12/25/16 09:00 predniSONE 20 mg PO DAILY 12/25/16 10:30 Diphth,Pertuss(Acell),Tet Vac [Adacel] 0.5 ml IM .ONCE ONE 12/25/16 11:30 GLUCOSE POC LAB TO COLLECT [POC] QIDACANDBED 12/25/16 16:30 GLUCOSE POC LAB TO COLLECT [POC] QIDACANDBED - Plan Plan:: Assessment and Plan - Heart failure with preserved ejection fraction - volume status seems to be nearing euvolemic at this time. Heart rate has continued to improve. -Oral furosemide -Discontinue Cardiac monitoring -Continue BB -hold ARB with hypotension -Recheck electrolytes and renal function in the morning Probable pneumonia - CT scan suggested possible developing infiltrates. Oxygenation has been improving since antibiotics were initiated 2 days ago. -Empiric antibiotics with ceftriaxone and doxycycline -Supplement oxygen -Cultures if she spikes a fever Acute kidney injury - I suspect intravascular volume depletion with her persistent hypotension. Crit and nearly back to baseline at this point. -diuresis as above -Continue to hold ARB -Repeat labs in the morning Anterior chest pain - mostly muscular/inflammatory pain. Resolved -start to wean steroids, decrease to 20 mg daily Leukocytosis - secondary to pneumonia, peripheral smear suggests inflammation versus myelodysplasia. Level is stable compared to yesterday. -Repeat white blood cell count in the morning -Consider outpatient bone marrow Type 2 diabetes mellitus - blood sugar control has been improving with increased insulin dosing. Because I'm decreasing steroids I will decrease her long-acting insulin. - metform continue to hold metformin -high-dose Sliding-scale insulin -Continue twice daily Levemir dosing but decrease dose Chronic atrial fibrillation - rate control is optimal at this time. -Continue beta andre -Continue rivaroxaban Maintenance issues - - DVT prophylaxis - rivaroxaban - GI prophylaxis - PPI - Nutrition - diabetic Disposition - anticipate discharge to home with home care versus half-way after the hospital stay, probably early next week Primary care physician - Debbi Jimenez M.D.
[2016-12-24] MEDS: Furosemide 20 MG Tab PO SCH (14:20)
[2016-12-24] MEDS: cefTRIAXone 1 GM in Sodium Chloride 0.9% 50 ML IV SCH (15:59)
[2016-12-24] MEDS ORDERED: Insulin Detemir 100 Units/ML 3 ML Pen SUBCUT SCH (21:00)
[2016-12-24] MEDS: Rivaroxaban 15 MG Tab PO SCH (21:07)
[2016-12-25] MEDS: Doxycycline 100 MG in Sodium Chloride 0.9% 100 ML IV SCH ×2 (04:09→16:09)
[2016-12-25] MEDS: Pantoprazole 40 MG Tab.CR PO SCH (07:38)
[2016-12-25] MEDS: Levothyroxine 100 MCG Tab PO SCH (07:38)
[2016-12-25] MEDS: Insulin Aspart 100 Units/ML 3 ML Pen SUBCUT SCH ×4 (07:39→21:21)
[2016-12-25] MEDS: Furosemide 20 MG Tab PO SCH (08:34)
[2016-12-25] MEDS: Montelukast 10 MG Tab PO SCH (08:34)
[2016-12-25] MEDS: predniSONE 20 MG Tab PO SCH (08:34)
[2016-12-25] MEDS: Vitamin B Complex Tab PO SCH (08:34)
[2016-12-25] MEDS: Loratadine 10 MG Tab PO SCH (08:34)
[2016-12-25] MEDS: Aspirin 81 MG Tab.EC PO SCH (08:34)
[2016-12-25] MEDS: Insulin Detemir 100 Units/ML 3 ML Pen SUBCUT SCH ×2 (08:35→21:22)
[2016-12-25] MEDS: Metoprolol Tartrate 25 MG Tab PO SCH ×2 (08:39→21:20)
[2016-12-25] MEDS: LUTEIN 10 MG PO SCH (08:40)
[2016-12-25] MEDS: Acetaminophen 325 MG Tab PO PRN (10:08)
[2016-12-25] MEDS ORDERED: Diphtheria,Pertussis(Acell),Tetanus Vaccine 0.5 ML SDV IM ONE (10:30)
--- NOTE | 2016-12-25 14:39 | PCM.PN ---
- General Info Date of Service: 12/25/16 Functional Status: Reports: Pain Controlled, Tolerating Diet, Ambulating - Review of Systems General: Reports: Weakness. Denies: Fever Pulmonary: Reports: Shortness of Breath, Cough Systems Review Comment:: Patient had difficulty with epistaxis overnight and this did require extended pressure over her nose to control bleeding. No bleeding this morning. She has not had any fevers. Oxygenation is stable to slightly improved. She still feels short of breath and is dyspneic with any activity. No complaints of chest pain. Appetite is suboptimal. No lower extremity edema. Repeat chest x-ray this morning shows cardiac enlargement and left lower lung density versus effusion. White blood cell count is back up today. - Patient Data Vitals - Most Recent: Last Vital Signs Temp 34.7 C L 12/25/16 11:00 Pulse 80 12/25/16 11:00 Resp 20 12/25/16 11:00 BP 131/81 12/25/16 11:00 Pulse Ox 96 12/25/16 11:00 Weight - Most Recent: 87.09 kg I&O - Last 24 Hours: Intake & Output 12/24/16 12/25/16 12/25/16 22:59 06:59 14:59 Intake Total 850 100 540 Output Total 1500 650 200 Balance -650 -550 340 Lab Results Last 24 Hours: Laboratory Results - last 24 hr 12/25/16 12/25/16 Range/Units 05:51 05:51 WBC 28.2 H (4.5-11.0) K/uL RBC 3.47 (3.30-5.50) M/uL Hgb 10.4 L (12.0-15.0) g/dL Hct 31.6 L (36.0-48.0) % MCV 91 (80-98) fL MCH 30 (27-31) pg MCHC 33 (32-36) % Plt Count 192 (150-400) K/uL Sodium 139 L (140-148) mmol/L Potassium 4.1 (3.6-5.2) mmol/L Chloride 99 L (100-108) mmol/L Carbon Dioxide 30 (21-32) mmol/L Anion Gap 14.1 H (5.0-14.0) mmol/L BUN 33 H (7-18) mg/dL Creatinine 1.0 (0.6-1.0) mg/dL Est Cr Clr Drug Dosing 33.17 mL/min Estimated GFR (MDRD) 52 L (>60) Glucose 87 (74-106) mg/dL Calcium 8.7 (8.5-10.1) mg/dL Med Orders - Current: Current Medications Acetaminophen (Tylenol) 650 mg PO Q4H PRN PRN Reason: Pain (Mild 1-3)/fever Last Admin: 12/25/16 10:08 Dose: 650 mg Albuterol (Proventil Neb Soln) 2.5 mg NEB Q4H PRN PRN Reason: Wheezing Last Admin: 12/23/16 14:43 Dose: 2.5 mg Aspirin (Halfprin) 81 mg PO DAILY [facility] Last Admin: 12/25/16 08:34 Dose: 81 mg Diphtheria/Tetanus/Acell Pertussis (Adacel) 0.5 ml IM .ONCE ONE Stop: 12/26/16 09:01 Furosemide (Lasix) 20 mg PO DAILY [facility] Last Admin: 12/25/16 08:34 Dose: 20 mg Doxycycline Hyclate 100 mg/ (Sodium Chloride) 100 mls @ 100 mls/hr IV Q12H [facility] Last Admin: 12/25/16 04:09 Dose: 100 mls/hr Ceftriaxone Sodium 1 gm/ (Sodium Chloride) 50 mls @ 100 mls/hr IV Q24H [facility] Last Admin: 12/24/16 15:59 Dose: 100 mls/hr Insulin Aspart (Novolog) 0 unit SUBCUT QIDACANDBED [facility] PRN Reason: Protocol Last Admin: 12/25/16 11:59 Dose: 8 units Insulin Detemir (Levemir) 10 unit SUBCUT BID [facility] Last Admin: 12/25/16 08:35 Dose: 10 units Levothyroxine Sodium (Synthroid) 100 mcg PO ACBREAKFAST [facility] Last Admin: 12/25/16 07:38 Dose: 100 mcg Loratadine (Claritin) 10 mg PO DAILY [facility] Last Admin: 12/25/16 08:34 Dose: 10 mg Metoprolol Tartrate (Lopressor) 25 mg PO BID [facility] Last Admin: 12/25/16 08:39 Dose: 25 mg Montelukast Sodium (Singulair) 10 mg PO DAILY [facility] Last Admin: 12/25/16 08:34 Dose: 10 mg Lutein 10 Mg (Ptom) 0 mg PO DAILY [facility] Last Admin: 12/25/16 08:40 Dose: Not Given Ondansetron HCl (Zofran Odt) 4 mg PO Q6H PRN PRN Reason: Nausea able to take PO Last Admin: 12/20/16 07:07 Dose: 4 mg Ondansetron HCl (Zofran) 4 mg IVPUSH Q6H PRN PRN Reason: Nausea/Vomiting Last Admin: 12/20/16 23:56 Dose: 4 mg Pantoprazole Sodium (Protonix) 40 mg PO ACBREAKFAST [facility] Last Admin: 12/25/16 07:38 Dose: 40 mg Polyethylene Glycol (Miralax) 17 gm PO DAILY PRN PRN Reason: Constipation Prednisone (Prednisone) 20 mg PO DAILY [facility] Last Admin: 12/25/16 08:34 Dose: 20 mg Rivaroxaban (Xarelto) 15 mg PO BEDTIME [facility] Last Admin: 12/24/16 21:07 Dose: 15 mg Sodium Chloride (Saline Flush) 10 ml FLUSH ASDIRECTED PRN PRN Reason: Keep Vein Open Last Admin: 12/19/16 09:56 Dose: 10 ml Vitamin B Complex (Vitamin B Complex) 1 each PO DAILY [facility] Last Admin: 12/25/16 08:34 Dose: 1 each Discontinued Medications Albuterol (Proventil Neb Soln) 2.5 mg NEB ONETIME ONE Stop: 12/22/16 02:55 Last Admin: 12/22/16 03:17 Dose: 2.5 mg Aspirin (Aspirin) 324 mg PO ONETIME ONE Stop: 12/19/16 09:30 Last Admin: 12/19/16 09:48 Dose: 324 mg Bisacodyl (Dulcolax) 10 mg RECTAL ONETIME ONE Stop: 12/20/16 23:41 Last Admin: 12/21/16 05:20 Dose: 10 mg Diphtheria/Tetanus/Acell Pertussis (Adacel) 0.5 ml IM .ONCE ONE Stop: 12/24/16 10:01 Last Admin: 12/24/16 10:56 Dose: Not Given Diphtheria/Tetanus/Acell Pertussis (Adacel) 0.5 ml IM .ONCE ONE Stop: 12/25/16 10:31 Furosemide (Lasix) 40 mg IVPUSH NOW ONE Stop: 12/19/16 13:01 Last Admin: 12/19/16 13:27 Dose: 40 mg Furosemide (Lasix) 40 mg IVPUSH ONETIME ONE Stop: 12/22/16 12:31 Last Admin: 12/22/16 12:34 Dose: 40 mg Furosemide (Lasix) 20 mg IVPUSH ONETIME ONE Stop: 12/23/16 14:01 Last Admin: 12/23/16 15:20 Dose: 20 mg Sodium Chloride (Normal Saline) 500 mls @ 999 mls/hr IV .BOLUS ONE Stop: 12/20/16 14:13 Last Admin: 12/20/16 14:09 Dose: 999 mls/hr Sodium Chloride (Normal Saline) 500 mls @ 500 mls/hr IV ASDIRECTED ONE Stop: 12/21/16 14:29 Last Admin: 12/21/16 13:27 Dose: 500 mls/hr Lactated Ringer's (Ringers, Lactated) 1,000 mls @ 100 mls/hr IV ASDIRECTED [facility] Last Admin: 12/21/16 17:14 Dose: 100 mls/hr Ibuprofen (Motrin) 400 mg PO TIDMEALS [facility] Last Admin: 12/21/16 13:11 Dose: Not Given Insulin Aspart (Novolog) 0 unit SUBCUT QIDACANDBED [facility] PRN Reason: Protocol Last Admin: 12/21/16 13:11 Dose: Not Given Insulin Aspart (Novolog) 0 unit SUBCUT QIDACANDBED [facility] PRN Reason: Protocol Last Admin: 12/25/16 07:39 Dose: Not Given Insulin Aspart (Novolog) 20 unit SUBCUT ONETIME ONE Stop: 12/21/16 16:33 Last Admin: 12/21/16 17:15 Dose: 20 units Insulin Aspart (Novolog) 0 unit SUBCUT ONETIME ONE Stop: 12/21/16 21:34 Last Admin: 12/21/16 22:00 Dose: 20 units Insulin Aspart (Novolog) 20 unit SUBCUT ONETIME ONE Stop: 12/22/16 16:46 Last Admin: 12/22/16 17:18 Dose: 20 units Insulin Aspart (Novolog) 0 unit SUBCUT ONETIME ONE Stop: 12/22/16 21:01 Last Admin: 12/22/16 21:39 Dose: 20 units Insulin Detemir (Levemir) 15 unit SUBCUT BEDTIME [facility] Last Admin: 12/21/16 22:02 Dose: 15 units Insulin Detemir (Levemir) 15 unit SUBCUT BID [facility] Last Admin: 12/22/16 08:38 Dose: 15 units Insulin Detemir (Levemir) 20 unit SUBCUT BID [facility] Insulin Detemir (Levemir) 0 unit SUBCUT BID [facility] Last Admin: 12/24/16 08:00 Dose: 30 units Insulin Detemir (Levemir) 20 unit SUBCUT BID [facility] Last Admin: 12/24/16 21:06 Dose: 20 units Lorazepam (Ativan) 0.5 mg IVPUSH ONETIME ONE Stop: 12/19/16 09:33 Last Admin: 12/19/16 09:49 Dose: 0.5 mg Metformin HCl (Glucophage) 1,000 mg PO BIDM [facility] Last Admin: 12/21/16 13:12 Dose: Not Given Morphine Sulfate (Morphine) 2 mg IVPUSH Q10M PRN PRN Reason: Chest Pain Stop: 12/20/16 09:30 Last Admin: 12/20/16 07:20 Dose: 2 mg Nitroglycerin (Nitrostat) 0.4 mg SL Q5M PRN PRN Reason: Chest Pain Stop: 12/20/16 09:29 Last Admin: 12/19/16 09:48 Dose: 0.4 mg Ondansetron HCl (Zofran) 4 mg IVPUSH ONETIME ONE Stop: 12/19/16 09:37 Last Admin: 12/19/16 09:56 Dose: 4 mg Pneumococcal Polyvalent Vaccine (Pneumovax 23) 0.5 ml IM .ONCE ONE Stop: 12/19/16 16:01 Prednisone (Prednisone) 40 mg PO ONETIME ONE Stop: 12/21/16 13:01 Last Admin: 12/21/16 13:11 Dose: 40 mg Prednisone (Prednisone) 20 mg PO BIDAC [facility] Last Admin: 12/24/16 07:48 Dose: 20 mg Valsartan (Diovan) 160 mg PO BEDTIME [facility] Last Admin: 12/19/16 22:32 Dose: Not Given Valsartan (Diovan) 80 mg PO BEDTIME [facility] - Exam Quality Assessment: Supplemental Oxygen General: Alert, Oriented, Cooperative, Mild Distress Neck: Supple Lungs: Clear to Auscultation, Normal Respiratory Effort, Decreased Breath Sounds (Mild left lung base). No: Rales, Wheezing Cardiovascular: Regular Rate, Irregular Rhythm, Murmurs GI/Abdominal Exam: Normal Bowel Sounds, Soft, Non-Tender, No Distention Extremities: No Pedal Edema. No: Increased Warmth Skin: Warm, Dry Psy/Mental Status: Alert, Normal Affect - Problem List & Annotations (1) Acute diastolic CHF (congestive heart failure), NYHA class 3 SNOMED Code(s): 852237639, 64731491, 104055507, 126313357 Code(s): I50.31 - ACUTE DIASTOLIC (CONGESTIVE) HEART FAILURE Status: Acute Current Visit: Yes (2) Diabetes mellitus type 2 SNOMED Code(s): 69699369 Code(s): E11.9 - TYPE 2 DIABETES MELLITUS WITHOUT COMPLICATIONS Status: Chronic Priority: Medium Current Visit: No (3) Atrial fibrillation with controlled ventricular response SNOMED Code(s): 75770083, 143538600 Code(s): I48.91 - UNSPECIFIED ATRIAL FIBRILLATION Status: Chronic Priority: Medium Current Visit: Yes - Problem List Review Problem List Initiated/Reviewed/Updated: Yes - My Orders Last 24 Hours: My Active Orders 12/24/16 14:00 Furosemide [Lasix] 20 mg PO DAILY 12/25/16 06:00 Daily Weight [Height and Weight] [RC] DAILY 12/25/16 09:00 Insulin Detemir [Levemir] 10 unit SUBCUT BID predniSONE 20 mg PO DAILY 12/25/16 11:00 Insulin Aspart [NovoLOG] See Protocol SUBCUT QIDACANDBED 12/25/16 12:53 CXR [Chest 1V Frontal] [CR] Routine 12/25/16 16:30 GLUCOSE POC LAB TO COLLECT [POC] QIDACANDBED 12/26/16 05:00 CBC W/O DIFF,HEMOGRAM [HEME] Timed (1) COMPREHENSIVE METABOLIC PN,CMP [CHEM] Timed MAGNESIUM [CHEM] Timed 12/26/16 09:00 Diphth,Pertuss(Acell),Tet Vac [Adacel] 0.5 ml IM .ONCE ONE - Plan Plan:: Assessment and Plan - Heart failure with preserved ejection fraction - volume status seems to be nearing euvolemic at this time. Heart rate has continued to improve. Still hypoxic and very dyspneic with activity. -Oral furosemide -Discontinue Cardiac monitoring -Continue BB -hold ARB with hypotension -Recheck electrolytes and renal function in the morning Probable pneumonia - CT scan suggested possible developing infiltrates. Oxygenation seems a little better after antibiotics were initiated 3 days ago. Repeat chest x-ray appears clear on the right but there is a density in the left lung base which could be infection or effusion. -Empiric antibiotics with ceftriaxone and doxycycline -Supplement oxygen -Cultures if she spikes a fever Acute kidney injury - I suspect intravascular volume depletion with her persistent hypotension. Creatinine has normalized. -diuresis as above -Continue to hold ARB -Repeat labs in the morning Anterior chest pain - mostly muscular/inflammatory pain. Resolved after steroids initiated. Dosing has been decreased to once daily. -Continue prednisone 20 mg daily Leukocytosis - probably secondary to pneumonia, peripheral smear suggests inflammation versus myelodysplasia. Level has risen the last 2 days. -Repeat white blood cell count in the morning -Consider outpatient bone marrow Type 2 diabetes mellitus - blood sugars continue to decrease his prednisone has been decreased. - continue to hold metformin, consider restarting in the next day or 2 -high-dose Sliding-scale insulin -Continue twice daily Levemir dosing but decrease dose again today Chronic atrial fibrillation - rate control is optimal at this time. -Continue beta andre -Continue rivaroxaban Maintenance issues - - DVT prophylaxis - rivaroxaban - GI prophylaxis - PPI - Nutrition - diabetic Disposition - anticipate discharge to home with home care versus assisted after the hospital stay, probably early next week Primary care physician - Debbi Jimenez M.D.
[2016-12-25] MEDS: cefTRIAXone 1 GM in Sodium Chloride 0.9% 50 ML IV SCH (15:15)
[2016-12-25] MEDS: Rivaroxaban 15 MG Tab PO SCH (21:20)
[2016-12-26] MEDS: Acetaminophen 325 MG Tab PO PRN (03:34)
[2016-12-26] MEDS: Doxycycline 100 MG in Sodium Chloride 0.9% 100 ML IV SCH ×2 (03:37→18:20)
[2016-12-26] MEDS: Pantoprazole 40 MG Tab.CR PO SCH (07:45)
[2016-12-26] MEDS: Levothyroxine 100 MCG Tab PO SCH (07:46)
[2016-12-26] MEDS ORDERED: Diphtheria,Pertussis(Acell),Tetanus Vaccine 0.5 ML SDV IM ONE (09:00)
[2016-12-26] MEDS: Aspirin 81 MG Tab.EC PO SCH (09:02)
[2016-12-26] MEDS: Montelukast 10 MG Tab PO SCH (09:02)
[2016-12-26] MEDS: Metoprolol Tartrate 25 MG Tab PO SCH ×2 (09:02→20:11)
[2016-12-26] MEDS: Furosemide 20 MG Tab PO SCH (09:03)
[2016-12-26] MEDS: Loratadine 10 MG Tab PO SCH (09:04)
[2016-12-26] MEDS: Vitamin B Complex Tab PO SCH (09:04)
[2016-12-26] MEDS: predniSONE 20 MG Tab PO SCH (09:04)
[2016-12-26] MEDS: Insulin Aspart 100 Units/ML 3 ML Pen SUBCUT SCH ×4 (09:05→21:44)
[2016-12-26] MEDS: Insulin Detemir 100 Units/ML 3 ML Pen SUBCUT SCH (09:06)
[2016-12-26] MEDS: Magnesium Sulfate/Water 2 GM in Premix Bag 1 BAG IV SCH ×3 (09:09→22:23)
[2016-12-26] MEDS: LUTEIN 10 MG PO SCH (09:16)
--- NOTE | 2016-12-26 10:23 | CR ---
Chest 1V Frontal INDICATION: hypoxia, cough FINDINGS: Comparison 12/19/2016. Interval development of infiltrate in the left lung base with a prob able small left pleural effusion. Findings suggest pneumonia. Right lung remains clear. Stable cardi ac enlargement.
[2016-12-26] MEDS ORDERED: Albuterol 8 GM Inhaler INH PRN (14:26)
[2016-12-26] MEDS ORDERED: Polyethylene Glycol 3350 Powder 17 GM Packet PO ONE (15:00)
--- NOTE | 2016-12-26 17:06 | PCM.PN ---
- General Info Date of Service: 12/26/16 Functional Status: Reports: Tolerating Diet, Urinating - Review of Systems General: Reports: Weakness. Denies: Fever, Chills Pulmonary: Reports: Shortness of Breath. Denies: Pleuritic Chest Pain, Cough, Sputum, Hemoptysis, Wheezing Cardiovascular: Reports: Dyspnea on Exertion, Edema. Denies: Chest Pain, Palpitations, Orthopnea, PND Gastrointestinal: Reports: No Symptoms Systems Review Comment:: Ms. Felder is felt improved over the past 24 hours with modest improvement in overall strength and further improvement in shortness of breath. She has been afebrile as well as hemodynamically stable. Oxygen saturations are now within the desired range on room air, which is a significant improvement over the past few days. White blood cell count further elevated today. - Patient Data Vitals - Most Recent: Last Vital Signs Temp 96.5 F 12/26/16 14:00 Pulse 104 H 12/26/16 14:00 Resp 18 12/26/16 14:00 BP 129/88 12/26/16 14:00 Pulse Ox 92 L 12/26/16 14:00 Weight - Most Recent: 192 lb I&O - Last 24 Hours: Intake & Output 12/26/16 12/26/16 12/26/16 06:59 14:59 22:59 Intake Total 300 500 Output Total 950 800 650 Balance -650 -300 -650 Lab Results Last 24 Hours: Laboratory Results - last 24 hr 12/26/16 12/26/16 Range/Units 05:00 05:30 WBC 28.6 H (4.5-11.0) K/uL RBC 3.30 (3.30-5.50) M/uL Hgb 10.1 L (12.0-15.0) g/dL Hct 30.6 L (36.0-48.0) % MCV 93 (80-98) fL MCH 31 (27-31) pg MCHC 33 (32-36) % Plt Count 196 (150-400) K/uL Sodium 139 L (140-148) mmol/L Potassium 4.3 (3.6-5.2) mmol/L Chloride 99 L (100-108) mmol/L Carbon Dioxide 32 (21-32) mmol/L Anion Gap 12.3 (5.0-14.0) mmol/L BUN 29 H (7-18) mg/dL Creatinine 1.0 (0.6-1.0) mg/dL Est Cr Clr Drug Dosing 33.17 mL/min Estimated GFR (MDRD) 52 L (>60) Glucose 192 H (74-106) mg/dL Calcium 8.4 L (8.5-10.1) mg/dL Magnesium 1.3 L (1.8-2.4) mg/dL Total Bilirubin 0.5 D (0.2-1.0) mg/dL AST 19 (15-37) U/L ALT 30 (12-78) U/L Alkaline Phosphatase 148 H (46-116) U/L Total Protein 7.2 (6.4-8.2) g/dL Albumin 2.5 L (3.4-5.0) g/dL Globulin 4.7 H (2.3-3.5) g/dL Albumin/Globulin Ratio 0.5 L (1.2-2.2) Med Orders - Current: Current Medications Acetaminophen (Tylenol) 650 mg PO Q4H PRN PRN Reason: Pain (Mild 1-3)/fever Last Admin: 12/26/16 03:34 Dose: 650 mg Albuterol (Proventil Neb Soln) 2.5 mg NEB Q4H PRN PRN Reason: Wheezing Last Admin: 12/23/16 14:43 Dose: 2.5 mg Albuterol (Ventolin Hfa) 0 gm INH Q2H PRN PRN Reason: Dyspnea Aspirin (Halfprin) 81 mg PO DAILY [facility] Last Admin: 12/26/16 09:02 Dose: 81 mg Furosemide (Lasix) 20 mg PO DAILY [facility] Last Admin: 12/26/16 09:03 Dose: 20 mg Doxycycline Hyclate 100 mg/ (Sodium Chloride) 100 mls @ 100 mls/hr IV Q12H [facility] Last Admin: 12/26/16 03:37 Dose: 100 mls/hr Ceftriaxone Sodium 1 gm/ (Sodium Chloride) 50 mls @ 100 mls/hr IV Q24H [facility] Last Admin: 12/25/16 15:15 Dose: 100 mls/hr Magnesium Sulfate 2 gm/ Premix 50 mls @ 25 mls/hr IV Q6H [facility] Stop: 12/26/16 22:59 Last Admin: 12/26/16 09:09 Dose: 25 mls/hr Insulin Aspart (Novolog) 0 unit SUBCUT QIDACANDBED [facility] PRN Reason: Protocol Last Admin: 12/26/16 12:08 Dose: 8 units Levothyroxine Sodium (Synthroid) 100 mcg PO ACBREAKFAST [facility] Last Admin: 12/26/16 07:46 Dose: 100 mcg Loratadine (Claritin) 10 mg PO DAILY [facility] Last Admin: 12/26/16 09:04 Dose: 10 mg Metformin HCl (Glucophage) 1,000 mg PO BIDMEALS [facility] Metoprolol Tartrate (Lopressor) 25 mg PO BID [facility] Last Admin: 12/26/16 09:02 Dose: 25 mg Montelukast Sodium (Singulair) 10 mg PO DAILY [facility] Last Admin: 12/26/16 09:02 Dose: 10 mg Lutein 10 Mg (Ptom) 0 mg PO DAILY [facility] Last Admin: 12/26/16 09:16 Dose: Not Given Ondansetron HCl (Zofran Odt) 4 mg PO Q6H PRN PRN Reason: Nausea able to take PO Last Admin: 12/20/16 07:07 Dose: 4 mg Ondansetron HCl (Zofran) 4 mg IVPUSH Q6H PRN PRN Reason: Nausea/Vomiting Last Admin: 12/20/16 23:56 Dose: 4 mg Pantoprazole Sodium (Protonix) 40 mg PO ACBREAKFAST [facility] Last Admin: 12/26/16 07:45 Dose: 40 mg Polyethylene Glycol (Miralax) 17 gm PO DAILY PRN PRN Reason: Constipation Rivaroxaban (Xarelto) 15 mg PO BEDTIME [facility] Last Admin: 12/25/16 21:20 Dose: 15 mg Sodium Chloride (Saline Flush) 10 ml FLUSH ASDIRECTED PRN PRN Reason: Keep Vein Open Last Admin: 12/19/16 09:56 Dose: 10 ml Vitamin B Complex (Vitamin B Complex) 1 each PO DAILY [facility] Last Admin: 12/26/16 09:04 Dose: 1 each Discontinued Medications Albuterol (Proventil Neb Soln) 2.5 mg NEB ONETIME ONE Stop: 12/22/16 02:55 Last Admin: 12/22/16 03:17 Dose: 2.5 mg Aspirin (Aspirin) 324 mg PO ONETIME ONE Stop: 12/19/16 09:30 Last Admin: 12/19/16 09:48 Dose: 324 mg Bisacodyl (Dulcolax) 10 mg RECTAL ONETIME ONE Stop: 12/20/16 23:41 Last Admin: 12/21/16 05:20 Dose: 10 mg Diphtheria/Tetanus/Acell Pertussis (Adacel) 0.5 ml IM .ONCE ONE Stop: 12/24/16 10:01 Last Admin: 12/24/16 10:56 Dose: Not Given Diphtheria/Tetanus/Acell Pertussis (Adacel) 0.5 ml IM .ONCE ONE Stop: 12/25/16 10:31 Diphtheria/Tetanus/Acell Pertussis (Adacel) 0.5 ml IM .ONCE ONE Stop: 12/26/16 09:01 Last Admin: 12/26/16 14:46 Dose: Not Given Furosemide (Lasix) 40 mg IVPUSH NOW ONE Stop: 12/19/16 13:01 Last Admin: 12/19/16 13:27 Dose: 40 mg Furosemide (Lasix) 40 mg IVPUSH ONETIME ONE Stop: 12/22/16 12:31 Last Admin: 12/22/16 12:34 Dose: 40 mg Furosemide (Lasix) 20 mg IVPUSH ONETIME ONE Stop: 12/23/16 14:01 Last Admin: 12/23/16 15:20 Dose: 20 mg Sodium Chloride (Normal Saline) 500 mls @ 999 mls/hr IV .BOLUS ONE Stop: 12/20/16 14:13 Last Admin: 12/20/16 14:09 Dose: 999 mls/hr Sodium Chloride (Normal Saline) 500 mls @ 500 mls/hr IV ASDIRECTED ONE Stop: 12/21/16 14:29 Last Admin: 12/21/16 13:27 Dose: 500 mls/hr Lactated Ringer's (Ringers, Lactated) 1,000 mls @ 100 mls/hr IV ASDIRECTED [facility] Last Admin: 12/21/16 17:14 Dose: 100 mls/hr Ibuprofen (Motrin) 400 mg PO TIDMEALS [facility] Last Admin: 12/21/16 13:11 Dose: Not Given Insulin Aspart (Novolog) 0 unit SUBCUT QIDACANDBED [facility] PRN Reason: Protocol Last Admin: 12/21/16 13:11 Dose: Not Given Insulin Aspart (Novolog) 0 unit SUBCUT QIDACANDBED [facility] PRN Reason: Protocol Last Admin: 12/25/16 07:39 Dose: Not Given Insulin Aspart (Novolog) 20 unit SUBCUT ONETIME ONE Stop: 12/21/16 16:33 Last Admin: 12/21/16 17:15 Dose: 20 units Insulin Aspart (Novolog) 0 unit SUBCUT ONETIME ONE Stop: 12/21/16 21:34 Last Admin: 12/21/16 22:00 Dose: 20 units Insulin Aspart (Novolog) 20 unit SUBCUT ONETIME ONE Stop: 12/22/16 16:46 Last Admin: 12/22/16 17:18 Dose: 20 units Insulin Aspart (Novolog) 0 unit SUBCUT ONETIME ONE Stop: 12/22/16 21:01 Last Admin: 12/22/16 21:39 Dose: 20 units Insulin Detemir (Levemir) 15 unit SUBCUT BEDTIME [facility] Last Admin: 12/21/16 22:02 Dose: 15 units Insulin Detemir (Levemir) 15 unit SUBCUT BID [facility] Last Admin: 12/22/16 08:38 Dose: 15 units Insulin Detemir (Levemir) 20 unit SUBCUT BID [facility] Insulin Detemir (Levemir) 0 unit SUBCUT BID [facility] Last Admin: 12/24/16 08:00 Dose: 30 units Insulin Detemir (Levemir) 20 unit SUBCUT BID [facility] Last Admin: 12/24/16 21:06 Dose: 20 units Insulin Detemir (Levemir) 10 unit SUBCUT BID [facility] Last Admin: 12/26/16 09:06 Dose: 10 units Lorazepam (Ativan) 0.5 mg IVPUSH ONETIME ONE Stop: 12/19/16 09:33 Last Admin: 12/19/16 09:49 Dose: 0.5 mg Metformin HCl (Glucophage) 1,000 mg PO BIDM [facility] Last Admin: 12/21/16 13:12 Dose: Not Given Morphine Sulfate (Morphine) 2 mg IVPUSH Q10M PRN PRN Reason: Chest Pain Stop: 12/20/16 09:30 Last Admin: 12/20/16 07:20 Dose: 2 mg Nitroglycerin (Nitrostat) 0.4 mg SL Q5M PRN PRN Reason: Chest Pain Stop: 12/20/16 09:29 Last Admin: 12/19/16 09:48 Dose: 0.4 mg Ondansetron HCl (Zofran) 4 mg IVPUSH ONETIME ONE Stop: 12/19/16 09:37 Last Admin: 12/19/16 09:56 Dose: 4 mg Pneumococcal Polyvalent Vaccine (Pneumovax 23) 0.5 ml IM .ONCE ONE Stop: 12/19/16 16:01 Polyethylene Glycol (Miralax) 17 gm PO ONETIME ONE Stop: 12/26/16 15:01 Prednisone (Prednisone) 40 mg PO ONETIME ONE Stop: 12/21/16 13:01 Last Admin: 12/21/16 13:11 Dose: 40 mg Prednisone (Prednisone) 20 mg PO BIDAC [facility] Last Admin: 12/24/16 07:48 Dose: 20 mg Prednisone (Prednisone) 20 mg PO DAILY [facility] Last Admin: 12/26/16 09:04 Dose: 20 mg Valsartan (Diovan) 160 mg PO BEDTIME [facility] Last Admin: 12/19/16 22:32 Dose: Not Given Valsartan (Diovan) 80 mg PO BEDTIME [facility] - Exam Quality Assessment: DVT Prophylaxis General: Alert, Oriented, Cooperative, No Acute Distress Lungs: Clear to Auscultation, Normal Respiratory Effort, Decreased Breath Sounds Cardiovascular: Regular Rate, Regular Rhythm, No Murmurs GI/Abdominal Exam: Normal Bowel Sounds, Soft, Non-Tender, No Distention Extremities: Non-Tender, Pedal Edema Skin: Warm, Dry, Intact - Problem List Review Problem List Initiated/Reviewed/Updated: Yes - My Orders Last 24 Hours: My Active Orders 12/26/16 09:00 Magnesium Sulfate/Water [Magnesium Sulfate 2 GM in Water 50 ML] 2 gm Premix Bag 1 bag IV Q6H 12/26/16 14:25 Consult to Physical Therapy [PT Evaluation and Treatment] [CONS] Routine 12/26/16 14:26 Albuterol [Ventolin HFA] See Dose Instructions INH Q2H PRN 12/26/16 14:27 RT Post Treatment Assessment [RC] Click to Edit 12/26/16 17:00 metFORMIN [Glucophage] 1,000 mg PO BIDMEALS 12/27/16 05:00 BASIC METABOLIC PANEL,BMP [CHEM] Timed CBC WITH AUTO DIFF [HEME] Timed MAGNESIUM [CHEM] Timed - Plan Plan:: Assessment and Plan - Heart failure with preserved ejection fraction - only very slight peripheral edema present today, heart rate stable, with less shortness of breath -Oral furosemide -Continue beta andre -hold ARB with hypotension -Recheck electrolytes and renal function in the morning Probable pneumonia - CT scan suggested possible developing infiltrates. Good improvement over the past 4 days on IV antibiotics. -Empiric antibiotics with ceftriaxone and doxycycline -Supplement oxygen -Cultures if she spikes a fever Chronic kidney disease stage III, with acute kidney injury - I suspect intravascular volume depletion with her persistent hypotension. Creatinine has normalized. -diuresis as above -Continue to hold ARB -Repeat labs in the morning Anterior chest pain - chest pain has resolved -Discontinue prednisone Leukocytosis - probably secondary to pneumonia, peripheral smear suggests inflammation versus myelodysplasia. Level has risen the last 3 days. -Repeat white blood cell count in the morning -Consider outpatient bone marrow Type 2 diabetes mellitus - glucose levels have improved with decrease in steroid dosing - Metformin 1 g by mouth twice a day -high-dose Sliding-scale insulin -Discontinue Levemir Chronic atrial fibrillation - rate control is optimal at this time. -Continue beta andre -Continue rivaroxaban Maintenance issues - - DVT prophylaxis - rivaroxaban - GI prophylaxis - PPI - Nutrition - diabetic Disposition - anticipate discharge to home with home care versus jail after the hospital stay, probably early next week Primary care physician - Debbi JETT
[2016-12-26] MEDS: metFORMIN 500 MG Tab PO SCH (17:22)
[2016-12-26] MEDS: cefTRIAXone 1 GM in Sodium Chloride 0.9% 50 ML IV SCH (18:19)
[2016-12-26] MEDS: Rivaroxaban 15 MG Tab PO SCH (20:12)
[2016-12-26] MEDS ORDERED: Insulin Aspart 100 Units/ML 3 ML Pen SUBCUT ONE (21:45)
[2016-12-27] MEDS: Doxycycline 100 MG in Sodium Chloride 0.9% 100 ML IV SCH (03:26)
[2016-12-27] MEDS: Acetaminophen 325 MG Tab PO PRN (04:07)
[2016-12-27] MEDS: Insulin Aspart 100 Units/ML 3 ML Pen SUBCUT SCH ×4 (07:42→21:12)
[2016-12-27] MEDS: Pantoprazole 40 MG Tab.CR PO SCH (07:44)
[2016-12-27] MEDS: Levothyroxine 100 MCG Tab PO SCH (07:45)
[2016-12-27] MEDS: metFORMIN 500 MG Tab PO SCH ×2 (07:45→16:13)
[2016-12-27] MEDS: Loratadine 10 MG Tab PO SCH (08:00)
[2016-12-27] MEDS: Furosemide 20 MG Tab PO SCH (08:00)
[2016-12-27] MEDS: Vitamin B Complex Tab PO SCH (08:00)
[2016-12-27] MEDS: Aspirin 81 MG Tab.EC PO SCH (08:00)
[2016-12-27] MEDS: LUTEIN 10 MG PO SCH (08:00)
[2016-12-27] MEDS: Metoprolol Tartrate 25 MG Tab PO SCH ×2 (08:00→20:35)
[2016-12-27] MEDS: Montelukast 10 MG Tab PO SCH (08:01)
[2016-12-27] MEDS ORDERED: Vancomycin 1 GM SDV IV SCH (11:00)
[2016-12-27] MEDS: Vancomycin 1.3 GM in Sodium Chloride 0.9% 250 ML IV SCH (13:19)
--- NOTE | 2016-12-27 17:26 | PCM.PN ---
- General Info Date of Service: 12/27/16 Functional Status: Reports: Pain Controlled, Tolerating Diet, Ambulating, Urinating - Review of Systems General: Reports: Weakness. Denies: Fever, Chills Pulmonary: Reports: No Symptoms Cardiovascular: Reports: No Symptoms Gastrointestinal: Reports: No Symptoms Systems Review Comment:: This patient is noted further improvement with shortness of breath over the past 24 hours. She's been able to walk in the [place] without supplemental oxygen and feels that her strength is slowly improving. Vital signs have been stable and she has remained afebrile. White blood cell count is further increase today , blood cultures were obtained and she has been switched to IV vancomycin and meropenem. - Patient Data Vitals - Most Recent: Last Vital Signs Temp 97.4 F 12/27/16 15:58 Pulse 103 H 12/27/16 15:58 Resp 18 12/27/16 15:58 BP 114/79 12/27/16 15:58 Pulse Ox 94 L 12/27/16 15:58 Weight - Most Recent: 193 lb 4.8 oz I&O - Last 24 Hours: Intake & Output 12/27/16 12/27/16 12/27/16 06:59 14:59 22:59 Intake Total 100 1050 Output Total 700 700 300 Balance -600 350 -300 Lab Results Last 24 Hours: Laboratory Results - last 24 hr 12/23/16 12/27/16 12/27/16 Range/Units 10:15 04:15 04:15 WBC 40.0 H* (4.5-11.0) K/uL RBC 3.44 (3.30-5.50) M/uL Hgb 10.4 L (12.0-15.0) g/dL Hct 31.9 L (36.0-48.0) % MCV 93 (80-98) fL MCH 30 (27-31) pg MCHC 33 (32-36) % Plt Count 233 (150-400) K/uL Add Manual Diff Yes Neutrophils % (Manual) 62 (36-66) % Band Neutrophils % 5 (5-11) % Lymphocytes % (Manual) 11 L (24-44) % Monocytes % (Manual) 22 H (2-6) % Nucleated RBCs 2 ESR (0-25) mm/hr Sodium 136 L (140-148) mmol/L Potassium 3.7 (3.6-5.2) mmol/L Chloride 99 L (100-108) mmol/L Carbon Dioxide 29 (21-32) mmol/L Anion Gap 11.7 (5.0-14.0) mmol/L BUN 20 H (7-18) mg/dL Creatinine 0.9 (0.6-1.0) mg/dL Est Cr Clr Drug Dosing 36.86 mL/min Estimated GFR (MDRD) 59 L (>60) Glucose 123 H (74-106) mg/dL Calcium 8.2 L (8.5-10.1) mg/dL Magnesium 2.4 D (1.8-2.4) mg/dL C-Reactive Protein (0.0-0.3) mg/dL Blood Type B NEGATIVE Gel Antibody Screen Positive A* Antibody Identification Inconclusive Crossmatch See Detail 12/27/16 12/27/16 Range/Units 10:40 10:40 WBC (4.5-11.0) K/uL RBC (3.30-5.50) M/uL Hgb (12.0-15.0) g/dL Hct (36.0-48.0) % MCV (80-98) fL MCH (27-31) pg MCHC (32-36) % Plt Count (150-400) K/uL Add Manual Diff Neutrophils % (Manual) (36-66) % Band Neutrophils % (5-11) % Lymphocytes % (Manual) (24-44) % Monocytes % (Manual) (2-6) % Nucleated RBCs ESR 79 H (0-25) mm/hr Sodium (140-148) mmol/L Potassium (3.6-5.2) mmol/L Chloride (100-108) mmol/L Carbon Dioxide (21-32) mmol/L Anion Gap (5.0-14.0) mmol/L BUN (7-18) mg/dL Creatinine (0.6-1.0) mg/dL Est Cr Clr Drug Dosing mL/min Estimated GFR (MDRD) (>60) Glucose (74-106) mg/dL Calcium (8.5-10.1) mg/dL Magnesium (1.8-2.4) mg/dL C-Reactive Protein 1.88 H (0.0-0.3) mg/dL Blood Type Gel Antibody Screen Antibody Identification Crossmatch Med Orders - Current: Current Medications Acetaminophen (Tylenol) 650 mg PO Q4H PRN PRN Reason: Pain (Mild 1-3)/fever Last Admin: 12/27/16 04:07 Dose: 650 mg Albuterol (Proventil Neb Soln) 2.5 mg NEB Q4H PRN PRN Reason: Wheezing Last Admin: 12/23/16 14:43 Dose: 2.5 mg Albuterol (Ventolin Hfa) 0 gm INH Q2H PRN PRN Reason: Dyspnea Aspirin (Halfprin) 81 mg PO DAILY [facility] Last Admin: 12/27/16 08:00 Dose: 81 mg Furosemide (Lasix) 20 mg PO DAILY [facility] Last Admin: 12/27/16 08:00 Dose: 20 mg Vancomycin HCl 1.3 gm/ Sodium (Chloride) 250 mls @ 167 mls/hr IV Q24H [facility] Last Admin: 12/27/16 13:19 Dose: 167 mls/hr Meropenem 500 mg/ Sodium (Chloride) 50 mls @ 100 mls/hr IV Q8H [facility] Insulin Aspart (Novolog) 0 unit SUBCUT QIDACANDBED [facility] PRN Reason: Protocol Last Admin: 12/27/16 16:13 Dose: 4 units Levothyroxine Sodium (Synthroid) 100 mcg PO ACBREAKFAST [facility] Last Admin: 12/27/16 07:45 Dose: 100 mcg Loratadine (Claritin) 10 mg PO DAILY [facility] Last Admin: 12/27/16 08:00 Dose: 10 mg Metformin HCl (Glucophage) 1,000 mg PO BIDMEALS [facility] Last Admin: 12/27/16 16:13 Dose: 1,000 mg Metoprolol Tartrate (Lopressor) 25 mg PO BID [facility] Last Admin: 12/27/16 08:00 Dose: 25 mg Montelukast Sodium (Singulair) 10 mg PO DAILY [facility] Last Admin: 12/27/16 08:01 Dose: 10 mg Lutein 10 Mg (Ptom) 0 mg PO DAILY [facility] Last Admin: 12/27/16 08:00 Dose: Not Given Ondansetron HCl (Zofran Odt) 4 mg PO Q6H PRN PRN Reason: Nausea able to take PO Last Admin: 12/20/16 07:07 Dose: 4 mg Ondansetron HCl (Zofran) 4 mg IVPUSH Q6H PRN PRN Reason: Nausea/Vomiting Last Admin: 12/20/16 23:56 Dose: 4 mg Pantoprazole Sodium (Protonix) 40 mg PO ACBREAKFAST [facility] Last Admin: 12/27/16 07:44 Dose: 40 mg Polyethylene Glycol (Miralax) 17 gm PO DAILY PRN PRN Reason: Constipation Rivaroxaban (Xarelto) 15 mg PO BEDTIME [facility] Last Admin: 12/26/16 20:12 Dose: 15 mg Sodium Chloride (Saline Flush) 10 ml FLUSH ASDIRECTED PRN PRN Reason: Keep Vein Open Last Admin: 12/19/16 09:56 Dose: 10 ml Vitamin B Complex (Vitamin B Complex) 1 each PO DAILY [facility] Last Admin: 12/27/16 08:00 Dose: 1 each Discontinued Medications Albuterol (Proventil Neb Soln) 2.5 mg NEB ONETIME ONE Stop: 12/22/16 02:55 Last Admin: 12/22/16 03:17 Dose: 2.5 mg Aspirin (Aspirin) 324 mg PO ONETIME ONE Stop: 12/19/16 09:30 Last Admin: 12/19/16 09:48 Dose: 324 mg Bisacodyl (Dulcolax) 10 mg RECTAL ONETIME ONE Stop: 12/20/16 23:41 Last Admin: 12/21/16 05:20 Dose: 10 mg Diphtheria/Tetanus/Acell Pertussis (Adacel) 0.5 ml IM .ONCE ONE Stop: 12/24/16 10:01 Last Admin: 12/24/16 10:56 Dose: Not Given Diphtheria/Tetanus/Acell Pertussis (Adacel) 0.5 ml IM .ONCE ONE Stop: 12/25/16 10:31 Diphtheria/Tetanus/Acell Pertussis (Adacel) 0.5 ml IM .ONCE ONE Stop: 12/26/16 09:01 Last Admin: 12/26/16 14:46 Dose: Not Given Furosemide (Lasix) 40 mg IVPUSH NOW ONE Stop: 12/19/16 13:01 Last Admin: 12/19/16 13:27 Dose: 40 mg Furosemide (Lasix) 40 mg IVPUSH ONETIME ONE Stop: 12/22/16 12:31 Last Admin: 12/22/16 12:34 Dose: 40 mg Furosemide (Lasix) 20 mg IVPUSH ONETIME ONE Stop: 12/23/16 14:01 Last Admin: 12/23/16 15:20 Dose: 20 mg Sodium Chloride (Normal Saline) 500 mls @ 999 mls/hr IV .BOLUS ONE Stop: 12/20/16 14:13 Last Admin: 12/20/16 14:09 Dose: 999 mls/hr Sodium Chloride (Normal Saline) 500 mls @ 500 mls/hr IV ASDIRECTED ONE Stop: 12/21/16 14:29 Last Admin: 12/21/16 13:27 Dose: 500 mls/hr Lactated Ringer's (Ringers, Lactated) 1,000 mls @ 100 mls/hr IV ASDIRECTED [facility] Last Admin: 12/21/16 17:14 Dose: 100 mls/hr Doxycycline Hyclate 100 mg/ (Sodium Chloride) 100 mls @ 100 mls/hr IV Q12H [facility] Last Admin: 12/27/16 03:26 Dose: 100 mls/hr Ceftriaxone Sodium 1 gm/ (Sodium Chloride) 50 mls @ 100 mls/hr IV Q24H [facility] Last Admin: 12/26/16 18:19 Dose: 100 mls/hr Magnesium Sulfate 2 gm/ Premix 50 mls @ 25 mls/hr IV Q6H SAY Stop: 12/26/16 22:59 Last Admin: 12/26/16 22:23 Dose: 25 mls/hr Meropenem 1 gm/ Sodium (Chloride) 50 mls @ 100 mls/hr IV Q8H [facility] Stop: 12/27/16 12:00 Last Admin: 12/27/16 11:51 Dose: 100 mls/hr Ibuprofen (Motrin) 400 mg PO TIDMEALS [facility] Last Admin: 12/21/16 13:11 Dose: Not Given Insulin Aspart (Novolog) 0 unit SUBCUT QIDACANDBED [facility] PRN Reason: Protocol Last Admin: 12/21/16 13:11 Dose: Not Given Insulin Aspart (Novolog) 0 unit SUBCUT QIDACANDBED [facility] PRN Reason: Protocol Last Admin: 12/25/16 07:39 Dose: Not Given Insulin Aspart (Novolog) 20 unit SUBCUT ONETIME ONE Stop: 12/21/16 16:33 Last Admin: 12/21/16 17:15 Dose: 20 units Insulin Aspart (Novolog) 0 unit SUBCUT ONETIME ONE Stop: 12/21/16 21:34 Last Admin: 12/21/16 22:00 Dose: 20 units Insulin Aspart (Novolog) 20 unit SUBCUT ONETIME ONE Stop: 12/22/16 16:46 Last Admin: 12/22/16 17:18 Dose: 20 units Insulin Aspart (Novolog) 0 unit SUBCUT ONETIME ONE Stop: 12/22/16 21:01 Last Admin: 12/22/16 21:39 Dose: 20 units Insulin Aspart (Novolog) 14 unit SUBCUT ONETIME ONE Stop: 12/26/16 21:46 Last Admin: 12/26/16 21:45 Dose: 14 units Insulin Detemir (Levemir) 15 unit SUBCUT BEDTIME [facility] Last Admin: 12/21/16 22:02 Dose: 15 units Insulin Detemir (Levemir) 15 unit SUBCUT BID [facility] Last Admin: 12/22/16 08:38 Dose: 15 units Insulin Detemir (Levemir) 20 unit SUBCUT BID [facility] Insulin Detemir (Levemir) 0 unit SUBCUT BID [facility] Last Admin: 12/24/16 08:00 Dose: 30 units Insulin Detemir (Levemir) 20 unit SUBCUT BID [facility] Last Admin: 12/24/16 21:06 Dose: 20 units Insulin Detemir (Levemir) 10 unit SUBCUT BID [facility] Last Admin: 12/26/16 09:06 Dose: 10 units Lorazepam (Ativan) 0.5 mg IVPUSH ONETIME ONE Stop: 12/19/16 09:33 Last Admin: 12/19/16 09:49 Dose: 0.5 mg Metformin HCl (Glucophage) 1,000 mg PO BIDM [facility] Last Admin: 12/21/16 13:12 Dose: Not Given Morphine Sulfate (Morphine) 2 mg IVPUSH Q10M PRN PRN Reason: Chest Pain Stop: 12/20/16 09:30 Last Admin: 12/20/16 07:20 Dose: 2 mg Nitroglycerin (Nitrostat) 0.4 mg SL Q5M PRN PRN Reason: Chest Pain Stop: 12/20/16 09:29 Last Admin: 12/19/16 09:48 Dose: 0.4 mg Ondansetron HCl (Zofran) 4 mg IVPUSH ONETIME ONE Stop: 12/19/16 09:37 Last Admin: 12/19/16 09:56 Dose: 4 mg Pneumococcal Polyvalent Vaccine (Pneumovax 23) 0.5 ml IM .ONCE ONE Stop: 12/19/16 16:01 Polyethylene Glycol (Miralax) 17 gm PO ONETIME ONE Stop: 12/26/16 15:01 Last Admin: 12/26/16 17:21 Dose: Not Given Prednisone (Prednisone) 40 mg PO ONETIME ONE Stop: 12/21/16 13:01 Last Admin: 12/21/16 13:11 Dose: 40 mg Prednisone (Prednisone) 20 mg PO BIDAC [facility] Last Admin: 12/24/16 07:48 Dose: 20 mg Prednisone (Prednisone) 20 mg PO DAILY [facility] Last Admin: 12/26/16 09:04 Dose: 20 mg Valsartan (Diovan) 160 mg PO BEDTIME [facility] Last Admin: 12/19/16 22:32 Dose: Not Given Valsartan (Diovan) 80 mg PO BEDTIME [facility] Vancomycin HCl (Vancomycin) 1 gm IV .PHARMACY TO DOSE SAY Stop: 12/27/16 12:00 - Exam Quality Assessment: DVT Prophylaxis General: Alert, Oriented, Cooperative, No Acute Distress Lungs: Clear to Auscultation, Normal Respiratory Effort Cardiovascular: Regular Rate, Regular Rhythm, No Murmurs GI/Abdominal Exam: Normal Bowel Sounds, Soft, Non-Tender, No Distention Extremities: Normal Inspection, No Pedal Edema Skin: Warm, Dry, Intact - Problem List Review Problem List Initiated/Reviewed/Updated: Yes - My Orders Last 24 Hours: My Active Orders 12/26/16 17:00 metFORMIN [Glucophage] 1,000 mg PO BIDMEALS 12/27/16 10:26 Blood Culture x2 Reflex Set [OM.PC] Urgent 12/27/16 10:35 CULTURE BLOOD [BC] Stat 12/27/16 10:40 CULTURE BLOOD [BC] Stat 12/27/16 12:00 Vancomycin 1.3 gm Sodium Chloride 0.9% [Normal Saline] 250 ml IV Q24H 12/27/16 20:00 Meropenem [Merrem] 500 mg Sodium Chloride 0.9% [Normal Saline] 50 ml IV Q8H 12/28/16 05:00 BASIC METABOLIC PANEL,BMP [CHEM] Timed CBC WITH AUTO DIFF [HEME] Timed - Plan Plan:: Assessment and Plan - Heart failure with preserved ejection fraction - well compensated at the present time -Oral furosemide -Continue beta andre -hold ARB with hypotension -Recheck electrolytes and renal function in the morning Probable pneumonia - CT scan suggested possible developing infiltrates. Good improvement over the past 5 days on IV antibiotics. Blood cell count is further elevated today -Discontinue ceftriaxone and doxycycline -Blood cultures pending -Change antibiotic coverage to IV vancomycin and meropenem -Supplement oxygen -Cultures if she spikes a fever Chronic kidney disease stage III- acute kidney injury resolved -diuresis as above -Continue to hold ARB -Repeat labs in the morning Anterior chest pain - chest pain has resolved Leukocytosis - probably secondary to pneumonia, peripheral smear suggests inflammation versus myelodysplasia. Level has risen the last 4 days. -Repeat white blood cell count in the morning -Consider outpatient bone marrow Type 2 diabetes mellitus - glucose levels have improved with decrease in steroid dosing - Metformin 1 g by mouth twice a day -high-dose Sliding-scale insulin -Discontinue Levemir Chronic atrial fibrillation - rate control is optimal at this time. -Continue beta andre -Continue rivaroxaban Maintenance issues - - DVT prophylaxis - rivaroxaban - GI prophylaxis - PPI - Nutrition - diabetic Disposition - anticipate discharge to home with home care versus [facility] after the hospital stay, probably early next week Primary care physician - Debbi JETT
[2016-12-27] MEDS: Meropenem 500 MG in Sodium Chloride 0.9% 50 ML IV SCH (20:27)
[2016-12-27] MEDS: Rivaroxaban 15 MG Tab PO SCH (20:35)
[2016-12-27] MEDS: Ondansetron 4 MG Tab.DIS PO PRN (21:12)
[2016-12-28] MEDS: Meropenem 500 MG in Sodium Chloride 0.9% 50 ML IV SCH ×2 (04:18→11:32)
[2016-12-28] MEDS: Levothyroxine 100 MCG Tab PO SCH (07:57)
[2016-12-28] MEDS: Insulin Aspart 100 Units/ML 3 ML Pen SUBCUT SCH ×2 (07:57→11:25)
[2016-12-28] MEDS: metFORMIN 500 MG Tab PO SCH (07:59)
[2016-12-28] MEDS: Pantoprazole 40 MG Tab.CR PO SCH (07:59)
[2016-12-28] MEDS: Ondansetron 4 MG Tab.DIS PO PRN ×2 (08:03→14:37)
[2016-12-28] MEDS: Vitamin B Complex Tab PO SCH (09:31)
[2016-12-28] MEDS: Aspirin 81 MG Tab.EC PO SCH (09:31)
[2016-12-28] MEDS: Loratadine 10 MG Tab PO SCH (09:31)
[2016-12-28] MEDS: Metoprolol Tartrate 25 MG Tab PO SCH (09:32)
[2016-12-28] MEDS: Montelukast 10 MG Tab PO SCH (09:32)
[2016-12-28] MEDS: LUTEIN 10 MG PO SCH (09:32)
[2016-12-28] MEDS: Furosemide 20 MG Tab PO SCH (09:33)
[2016-12-28] MEDS: Vancomycin 1.3 GM in Sodium Chloride 0.9% 250 ML IV SCH (12:37)
[2016-12-28 14:37] VITALS: BP 118/77
[2016-12-28] MEDS ORDERED: Loperamide 2 MG Cap PO ONE (14:45)
--- NOTE | 2016-12-28 14:51 | PCM.DCSUM1 ---
Discharge Summary - Hospital Course Brief History: Ms. Felder is an 89-year-old woman who was admitted through the emergency department because of symptoms of shortness of breath and chest pain thought secondary to pulmonary edema. - Discharge Data Discharge Date: 12/28/16 Discharge Disposition: DC/Tfer to [facility] 02 Condition: Stable - Discharge Diagnosis/Problem(s) (1) Pneumonia SNOMED Code(s): 001936655 ICD Code: J18.9 - PNEUMONIA, UNSPECIFIED ORGANISM Status: Acute Current Visit: Yes (2) Leukocytosis SNOMED Code(s): 467213833, 483112322 ICD Code: D72.829 - ELEVATED WHITE BLOOD CELL COUNT, UNSPECIFIED Status: Acute Current Visit: Yes (3) Diabetes mellitus type 2 SNOMED Code(s): 01597022 ICD Code: E11.9 - TYPE 2 DIABETES MELLITUS WITHOUT COMPLICATIONS Status: Chronic Priority: Medium Current Visit: No (4) Atrial fibrillation with controlled ventricular response SNOMED Code(s): 44800999, 754637584 ICD Code: I48.91 - UNSPECIFIED ATRIAL FIBRILLATION Status: Chronic Priority: Medium Current Visit: Yes - Patient Summary/Data Consults: Consultations 12/26/16 14:25 Consult to Physical Therapy [PT Evaluation and Treatment] [CONS] Routine Please Evaluate and Treat. PT Reason for Consult: Strengthening This query below is only for informational purposes and is not editable. Admission Diagnosis/Problem: CHF, Congestive heart failure Hospital Course: Ms. Felder is an 89-year-old woman who was seen and evaluated in the emergency department because of symptoms of chest pressure and shortness of breath. Chest x-ray was felt to show evidence of some pulmonary edema, this was felt to be the cause of her symptoms. She was given IV diuretics after admission but really did not improve significantly. White blood cell count was elevated at 20, 000 on admission. There was no evidence of infection so she was not started on IV antibiotic therapy. She has had a recent history of normochromic normocytic anemia with no specific etiology. Recent peripheral smear suggested inflammatory process versus myelodysplastic syndrome. She remained afebrile but continued to experience respiratory symptoms with shortness of breath. She did develop acute kidney injury on top of her chronic kidney disease, this was felt to be secondary to intravascular volume depletion with attempted diuresis. Diuretics were held and she was given IV fluids, renal function returned to baseline prior to transfer. Because of persistent symptoms as well as further elevation in white blood cell count to 36,000, CT scan of the chest abdomen and pelvis was obtained. CT scan of the chest showed evidence of infiltrates consistent with underlying infection. CT scan of the abdomen and pelvis showed no obvious source of infection. Blood cultures were obtained and she was started on IV antibiotic therapy with ceftriaxone and doxycycline. Over the next several days her respiratory symptoms improved dramatically, with good improvement in her hypoxia as well. By the time of transfer she was noted to have good oxygen saturation on room air at rest and with activity. Initially after antibiotics were started her white blood cell count dropped from 35,000 17 ,000. Over the next several days that she improved clinically her white count gradually increased to 47,000. Because of persistent leukocytosis, with no evidence of underlying infection was felt that there was likely another cause for the significant leukocytosis. She had experienced some diarrhea prior to transfer but this was felt to be secondary to antibiotic therapy. She has a known history of chronic atrial fibrillation, rate control has been adequate. She also has a history of type 2 diabetes mellitus glucose levels have been monitored regularly during hospital stay and she is been treated with sliding scale NovoLog insulins. Stool was obtained for C. difficile which was negative. She is currently on oral antibiotic therapy with doxycycline and has been receiving IV fluids because of the diarrhea. She will be transferred via [facility] to [place] for further subspecialty evaluation of her marked leukocytosis. - Patient Instructions Diet: Diabetic Diet Activity: As Tolerated Other/Special Instructions: Patient will be transferred to [facility] in [facility] via [facility]. - Discharge Plan Home Medications: Home Meds Ascorbic Acid [Vitamin C] 1,000 mg PO DAILY 02/19/13 [History] Aspirin [Halfprin] 81 mg PO DAILY 02/19/13 [History] Lutein 10 mg PO DAILY 02/19/13 [History] Valsartan [Diovan] 160 mg PO BEDTIME 02/19/13 [History] Vitamin B Complex [B Complex] 1 each PO BID 02/19/13 [History] metFORMIN [Glucophage] 1,000 mg PO BID 02/20/13 [History] Codeine/guaiFENesin [Robitussin AC] 1 tsp PO BEDTIME PRN 02/06/14 [History] Levothyroxine [Synthroid] 100 mcg PO DAILY 02/06/14 [History] Montelukast [Singulair] 10 mg PO DAILY 02/06/14 [History] Metoprolol Tartrate 25 mg PO BID 04/08/15 [History] Furosemide [Lasix] 20 mg PO DAILY 07/26/16 [History] Omeprazole 20 mg PO ASDIRECTED PRN 07/26/16 [History] Loratadine 10 mg PO DAILY 12/19/16 [History] Rivaroxaban [Xarelto] 15 mg PO BEDTIME 12/19/16 [History] Doxycycline Calcium [IMW: Doxycycline] 100 mg PO BID capsule 12/28/16 [Rx] Referrals: Veena Matute PA [Primary Care Provider] - - Patient Data Vitals - Most Recent: Last Vital Signs Temp 97.1 F 12/28/16 14:36 Pulse 101 H 12/28/16 14:36 Resp 18 12/28/16 14:36 BP 118/77 12/28/16 14:36 Pulse Ox 92 L 12/28/16 14:36 Weight - Most Recent: 194 lb 14.4 oz I&O - Last 24 hours: Intake & Output 12/27/16 12/28/16 12/28/16 22:59 06:59 14:59 Intake Total 150 110 390 Output Total 1000 300 500 Balance -850 -190 -110 Lab Results - Last 24 hrs: Laboratory Results - last 24 hr 12/28/16 12/28/16 Range/Units 04:47 04:47 WBC 46.9 H* (4.5-11.0) K/uL RBC 3.16 L (3.30-5.50) M/uL Hgb 9.5 L (12.0-15.0) g/dL Hct 29.9 L (36.0-48.0) % MCV 95 (80-98) fL MCH 30 (27-31) pg MCHC 32 (32-36) % Plt Count 252 (150-400) K/uL Add Manual Diff Yes Neutrophils % (Manual) 57 (36-66) % Band Neutrophils % 4 L (5-11) % Lymphocytes % (Manual) 8 L (24-44) % Monocytes % (Manual) 31 H (2-6) % Sodium 132 L (140-148) mmol/L Potassium 4.4 (3.6-5.2) mmol/L Chloride 97 L (100-108) mmol/L Carbon Dioxide 27 (21-32) mmol/L Anion Gap 12.4 (5.0-14.0) mmol/L BUN 21 H (7-18) mg/dL Creatinine 1.0 (0.6-1.0) mg/dL Est Cr Clr Drug Dosing 33.17 mL/min Estimated GFR (MDRD) 52 L (>60) Glucose 216 H (74-106) mg/dL Calcium 8.0 L (8.5-10.1) mg/dL JODIE Results - Last 24 hrs: Microbiology 12/27/16 10:35 Aerobic Blood Culture - Preliminary Blood - Arm, Right NO GROWTH AFTER 1 DAY Anaerobic Blood Culture - Preliminary NO GROWTH AFTER 1 DAY 12/27/16 10:40 Aerobic Blood Culture - Preliminary Blood - Arm, Left NO GROWTH AFTER 1 DAY Anaerobic Blood Culture - Preliminary NO GROWTH AFTER 1 DAY 12/27/16 20:31 Clostridium difficile (PCR) - Final Stool / Feces NEGATIVE CDIFF TOXIN Med Orders - Current: Current Medications Acetaminophen (Tylenol) 650 mg PO Q4H PRN PRN Reason: Pain (Mild 1-3)/fever Last Admin: 12/27/16 04:07 Dose: 650 mg Albuterol (Proventil Neb Soln) 2.5 mg NEB Q4H PRN PRN Reason: Wheezing Last Admin: 12/23/16 14:43 Dose: 2.5 mg Albuterol (Ventolin Hfa) 0 gm INH Q2H PRN PRN Reason: Dyspnea Aspirin (Halfprin) 81 mg PO DAILY [facility] Last Admin: 12/28/16 09:31 Dose: 81 mg Doxycycline Hyclate (Vibramycin) 100 mg PO BID [facility] Furosemide (Lasix) 20 mg PO DAILY [facility] Last Admin: 12/28/16 09:33 Dose: 20 mg Insulin Aspart (Novolog) 0 unit SUBCUT QIDACANDBED [facility] PRN Reason: Protocol Last Admin: 12/28/16 11:25 Dose: 6 units Levothyroxine Sodium (Synthroid) 100 mcg PO ACBREAKFAST [facility] Last Admin: 12/28/16 07:57 Dose: 100 mcg Loperamide HCl (Imodium) 2 mg PO ONETIME ONE Stop: 12/28/16 14:46 Last Admin: 12/28/16 14:37 Dose: 2 mg Loratadine (Claritin) 10 mg PO DAILY [facility] Last Admin: 12/28/16 09:31 Dose: 10 mg Metformin HCl (Glucophage) 1,000 mg PO BIDMEALS [facility] Last Admin: 12/28/16 07:59 Dose: 1,000 mg Metoprolol Tartrate (Lopressor) 25 mg PO BID [facility] Last Admin: 12/28/16 09:32 Dose: 25 mg Montelukast Sodium (Singulair) 10 mg PO DAILY [facility] Last Admin: 12/28/16 09:32 Dose: 10 mg Lutein 10 Mg (Ptom) 0 mg PO DAILY [facility] Last Admin: 12/28/16 09:32 Dose: Not Given Ondansetron HCl (Zofran Odt) 4 mg PO Q6H PRN PRN Reason: Nausea able to take PO Last Admin: 12/28/16 14:37 Dose: 4 mg Ondansetron HCl (Zofran) 4 mg IVPUSH Q6H PRN PRN Reason: Nausea/Vomiting Last Admin: 12/20/16 23:56 Dose: 4 mg Pantoprazole Sodium (Protonix) 40 mg PO ACBREAKFAST [facility] Last Admin: 12/28/16 07:59 Dose: 40 mg Polyethylene Glycol (Miralax) 17 gm PO DAILY PRN PRN Reason: Constipation Rivaroxaban (Xarelto) 15 mg PO BEDTIME [facility] Last Admin: 12/27/16 20:35 Dose: 15 mg Sodium Chloride (Saline Flush) 10 ml FLUSH ASDIRECTED PRN PRN Reason: Keep Vein Open Last Admin: 12/19/16 09:56 Dose: 10 ml Vitamin B Complex (Vitamin B Complex) 1 each PO DAILY [facility] Last Admin: 12/28/16 09:31 Dose: 1 each Discontinued Medications Albuterol (Proventil Neb Soln) 2.5 mg NEB ONETIME ONE Stop: 12/22/16 02:55 Last Admin: 12/22/16 03:17 Dose: 2.5 mg Aspirin (Aspirin) 324 mg PO ONETIME ONE Stop: 12/19/16 09:30 Last Admin: 12/19/16 09:48 Dose: 324 mg Bisacodyl (Dulcolax) 10 mg RECTAL ONETIME ONE Stop: 12/20/16 23:41 Last Admin: 12/21/16 05:20 Dose: 10 mg Diphtheria/Tetanus/Acell Pertussis (Adacel) 0.5 ml IM .ONCE ONE Stop: 12/24/16 10:01 Last Admin: 12/24/16 10:56 Dose: Not Given Diphtheria/Tetanus/Acell Pertussis (Adacel) 0.5 ml IM .ONCE ONE Stop: 12/25/16 10:31 Diphtheria/Tetanus/Acell Pertussis (Adacel) 0.5 ml IM .ONCE ONE Stop: 12/26/16 09:01 Last Admin: 12/26/16 14:46 Dose: Not Given Furosemide (Lasix) 40 mg IVPUSH NOW ONE Stop: 12/19/16 13:01 Last Admin: 12/19/16 13:27 Dose: 40 mg Furosemide (Lasix) 40 mg IVPUSH ONETIME ONE Stop: 12/22/16 12:31 Last Admin: 12/22/16 12:34 Dose: 40 mg Furosemide (Lasix) 20 mg IVPUSH ONETIME ONE Stop: 12/23/16 14:01 Last Admin: 12/23/16 15:20 Dose: 20 mg Sodium Chloride (Normal Saline) 500 mls @ 999 mls/hr IV .BOLUS ONE Stop: 12/20/16 14:13 Last Admin: 12/20/16 14:09 Dose: 999 mls/hr Sodium Chloride (Normal Saline) 500 mls @ 500 mls/hr IV ASDIRECTED ONE Stop: 12/21/16 14:29 Last Admin: 12/21/16 13:27 Dose: 500 mls/hr Lactated Ringer's (Ringers, Lactated) 1,000 mls @ 100 mls/hr IV ASDIRECTED [facility] Last Admin: 12/21/16 17:14 Dose: 100 mls/hr Doxycycline Hyclate 100 mg/ (Sodium Chloride) 100 mls @ 100 mls/hr IV Q12H [facility] Last Admin: 12/27/16 03:26 Dose: 100 mls/hr Ceftriaxone Sodium 1 gm/ (Sodium Chloride) 50 mls @ 100 mls/hr IV Q24H [facility] Last Admin: 12/26/16 18:19 Dose: 100 mls/hr Magnesium Sulfate 2 gm/ Premix 50 mls @ 25 mls/hr IV Q6H SAY Stop: 12/26/16 22:59 Last Admin: 12/26/16 22:23 Dose: 25 mls/hr Meropenem 1 gm/ Sodium (Chloride) 50 mls @ 100 mls/hr IV Q8H [facility] Stop: 12/27/16 12:00 Last Admin: 12/27/16 11:51 Dose: 100 mls/hr Vancomycin HCl 1.3 gm/ Sodium (Chloride) 250 mls @ 167 mls/hr IV Q24H [facility] Last Admin: 12/28/16 12:37 Dose: 167 mls/hr Meropenem 500 mg/ Sodium (Chloride) 50 mls @ 100 mls/hr IV Q8H [facility] Last Admin: 12/28/16 11:32 Dose: 100 mls/hr Ibuprofen (Motrin) 400 mg PO TIDMEALS [facility] Last Admin: 12/21/16 13:11 Dose: Not Given Insulin Aspart (Novolog) 0 unit SUBCUT QIDACANDBED [facility] PRN Reason: Protocol Last Admin: 12/21/16 13:11 Dose: Not Given Insulin Aspart (Novolog) 0 unit SUBCUT QIDACANDBED [facility] PRN Reason: Protocol Last Admin: 12/25/16 07:39 Dose: Not Given Insulin Aspart (Novolog) 20 unit SUBCUT ONETIME ONE Stop: 12/21/16 16:33 Last Admin: 12/21/16 17:15 Dose: 20 units Insulin Aspart (Novolog) 0 unit SUBCUT ONETIME ONE Stop: 12/21/16 21:34 Last Admin: 12/21/16 22:00 Dose: 20 units Insulin Aspart (Novolog) 20 unit SUBCUT ONETIME ONE Stop: 12/22/16 16:46 Last Admin: 12/22/16 17:18 Dose: 20 units Insulin Aspart (Novolog) 0 unit SUBCUT ONETIME ONE Stop: 12/22/16 21:01 Last Admin: 12/22/16 21:39 Dose: 20 units Insulin Aspart (Novolog) 14 unit SUBCUT ONETIME ONE Stop: 12/26/16 21:46 Last Admin: 12/26/16 21:45 Dose: 14 units Insulin Detemir (Levemir) 15 unit SUBCUT BEDTIME [facility] Last Admin: 12/21/16 22:02 Dose: 15 units Insulin Detemir (Levemir) 15 unit SUBCUT BID [facility] Last Admin: 12/22/16 08:38 Dose: 15 units Insulin Detemir (Levemir) 20 unit SUBCUT BID [facility] Insulin Detemir (Levemir) 0 unit SUBCUT BID [facility] Last Admin: 12/24/16 08:00 Dose: 30 units Insulin Detemir (Levemir) 20 unit SUBCUT BID [facility] Last Admin: 12/24/16 21:06 Dose: 20 units Insulin Detemir (Levemir) 10 unit SUBCUT BID [facility] Last Admin: 12/26/16 09:06 Dose: 10 units Lorazepam (Ativan) 0.5 mg IVPUSH ONETIME ONE Stop: 12/19/16 09:33 Last Admin: 12/19/16 09:49 Dose: 0.5 mg Metformin HCl (Glucophage) 1,000 mg PO BIDM [facility] Last Admin: 12/21/16 13:12 Dose: Not Given Morphine Sulfate (Morphine) 2 mg IVPUSH Q10M PRN PRN Reason: Chest Pain Stop: 12/20/16 09:30 Last Admin: 12/20/16 07:20 Dose: 2 mg Nitroglycerin (Nitrostat) 0.4 mg SL Q5M PRN PRN Reason: Chest Pain Stop: 12/20/16 09:29 Last Admin: 12/19/16 09:48 Dose: 0.4 mg Ondansetron HCl (Zofran) 4 mg IVPUSH ONETIME ONE Stop: 12/19/16 09:37 Last Admin: 12/19/16 09:56 Dose: 4 mg Pneumococcal Polyvalent Vaccine (Pneumovax 23) 0.5 ml IM .ONCE ONE Stop: 12/19/16 16:01 Polyethylene Glycol (Miralax) 17 gm PO ONETIME ONE Stop: 12/26/16 15:01 Last Admin: 12/26/16 17:21 Dose: Not Given Prednisone (Prednisone) 40 mg PO ONETIME ONE Stop: 12/21/16 13:01 Last Admin: 12/21/16 13:11 Dose: 40 [facility] Last Admin: 12/24/16 07:48 Dose: 20 mg Prednisone (Prednisone) 20 mg PO DAILY [facility] Last Admin: 12/26/16 09:04 Dose: 20 mg Valsartan (Diovan) 160 mg PO BEDTIME [facility] Last Admin: 12/19/16 22:32 Dose: Not Given Valsartan (Diovan) 80 mg PO BEDTIME [facility] Vancomycin HCl (Vancomycin) 1 gm IV .PHARMACY TO DOSE SAY Stop: 12/27/16 12:00 *Q Meaningful Use (DIS) - VTE *Q VTE Criteria *Q: - Stroke *Q Stroke Criteria *Q: - AMI *Q AMI Criteria *Q:
[2016-12-28] MEDS ORDERED: Doxycycline 100 MG Cap PO SCH (21:00)
== END 2016-12-28 14:58 | DRG 291 ==
LOC: JP.ED 09:01 → JP.MS 12:32 → UNDOADMIN 12:32 → JP.MS 12:37 → JP.ED 13:17
PROVIDERS: ADMIT Internal Medicine; ATTEND Hospitalist
PROC: 30233N1 Transfusion of Nonautologous Red Blood Cells into Peripheral Vein, Percutaneous Approach (ICD-10-PCS; principal; 2016-12-24)
DX: I13.0 Hypertensive heart and chronic kidney disease with heart failure and stage 1 through stage 4 chronic kidney disease, or unspecified chronic kidney disease (principal); I50.31 Acute diastolic (congestive) heart failure; J18.9 Pneumonia, unspecified organism; N17.9 Acute kidney failure, unspecified; E11.65 Type 2 diabetes mellitus with hyperglycemia; I25.10 Atherosclerotic heart disease of native coronary artery without angina pectoris; I48.2 Chronic atrial fibrillation; Z66 Do not resuscitate; E11.22 Type 2 diabetes mellitus with diabetic chronic kidney disease; D72.829 Elevated white blood cell count, unspecified; N18.3 Chronic kidney disease, stage 3 (moderate); Z79.84 Long term (current) use of oral hypoglycemic drugs; Z79.01 Long term (current) use of anticoagulants; I95.9 Hypotension, unspecified; D64.9 Anemia, unspecified; J45.909 Unspecified asthma, uncomplicated; Z85.820 Personal history of malignant melanoma of skin; Z23 Encounter for immunization; R09.02 Hypoxemia; R04.0 Epistaxis; Z96.659 Presence of unspecified artificial knee joint; E86.1 Hypovolemia; Z79.82 Long term (current) use of aspirin; Z88.1 Allergy status to other antibiotic agents; Z91.041 Radiographic dye allergy status; Z88.7 Allergy status to serum and vaccine; Z91.018 Allergy to other foods
CPT/HCPCS: 36415; 71010 ×2; 71250 ×2; 80053; 82553; 82962; 83880; 84484; 85025; 90471; 93005; 93010; 96374; 96375; 99285 ×2; A9270 ×2; J2060; J2270; J2405; J7050; 36430; 74176; 74176-26; 80048; 81001; 83615; 83735; 85027; 85060; 85651; 86140; 86850; 86900; 86901; 86920; 86922; 87040; 87493; 93306; 96376; 97162-GP; 97530-GP; J0696; J1940; J2185; J3370; J3475; J7030; J7040; J7120; P9016